=== PATIENT | female | born 1970 | race Caucasian/White ===

== ENCOUNTER 2024-02-02 15:58 | Emergency (ER) | payer MEDICAID, SELFPAY ==
[2024-02-02 16:07] VITALS: BP 156/93; PULSE 88; RESP 19; TEMP 36.9; O2SAT 98; BMI 29.0
--- NOTE | 2024-02-02 16:21 | XR_ITS ---
Examination: PA lateral chest 2 views TECHNIQUE: Upright PA lateral chest 2 views Exam date and time: February 02, 2024 1639 hours Comparison July 04, 2022 INDICATIONS: Onset chest pain today. FINDINGS: Early heart failure Mild enlargement cardiac contour Prominent vascular congestion Early septal edema at the lung bases and fluid in the fissures on the lateral view Small right pleural effusion IMPRESSION: Early heart failure
--- NOTE | 2024-02-02 16:21 | PD.EDRME ---
Rapid Medical Screening Exam RME Arrival date/time: 02/02/24 15:58 54-year-old female with history of methamphetamine abuse last use today presents to the emergency department today stating she has fluid retention and elevated blood sugar Chief Complaint: General Adult/Misc Complain Time Seen by Provider: 02/02/24 16:18
[2024-02-02 17:18] LABS: Collection Type, Urine Clean Catch
[2024-02-02 17:21] LABS: Base Excess, Venous 6 (-3-3); O2 Saturation, Venous 44 % (96-97); PCO2, Venous 55 mmHg (36-56); PO2, Venous 24 mmHg (15-58); pH, Venous 7.39 (7.33-7.66)
[2024-02-02 17:22] LABS: Basophils % (Auto) 1 % (0-2.5); Eosinophils # (Auto) 0.1 Thou/mm3 (0.0-0.5); Eosinophils % (Auto) 2 % (0-10); Hematocrit 43.9 % (36.0-46.0); Hemoglobin 15.2 g/dL (12.0-16.0); Immature Granulocytes % (Auto) 0 % (0-0); Immature Granulocytes Auto 0.01 Thou/mm3 (0.00-0.00); Lymphocytes # (Auto) 1.1 Thou/mm3 (1.0-4.8); Lymphocytes % (Auto) 25 % (10-50); Mean Corpuscular HGB Conc 34.6 g/dl (31.0-37.0); Mean Corpuscular Hemoglobin 29.6 pg (25.0-35.0); Mean Corpuscular Volume 85 fL (80-100); Monocytes # (Auto) 0.4 Thou/mm3 (0.0-0.8); Monocytes % (Auto) 8 % (0-12); Neutrophils # (Auto) 2.8 Thou/mm3 (1.8-7.7); Neutrophils % (Auto) 65 % (37-80); Nucleated Red Blood Cell % 0 /100 WBC (0); Platelet Count 180 Thou/mm3 (140-440); RDW Standard Deviation 41.6 fL (36.4-46.3); Red Blood Count 5.14 Miln/mm3 (4.00-5.20); White Blood Count 4.4 Thou/mm3 (3.6-11.0)
[2024-02-02 17:25] LABS: HCG Qualitative,Urine Negative
[2024-02-02 17:27] LABS: Bacteria,Urine Rare; Bilirubin,Urine Negative (Negative); Blood,Urine Negative (Negative); Clarity,Urine Clear (Clear/Hazy); Color,Urine Lt-Yellow (Lt Yel-Yel); Glucose, Urine 4+ (Negative); Ketones,Urine Negative (Negative); Leukocyte Esterase,Urine Negative (Negative); Nitrite,Urine Negative (Negative); PH,Urine 6.5 (5.0-7.0); Protein,Urine 1+ (Neg - Trace); RBC,Urine 3 /hpf (0-3); Specific Gravity,Urine 1.039 (1.001-1.035); Squamous Epithelial Cell,Urine 1 /hpf (0-5); Urobilinogen,Urine Negative mg/dL (0.0-1.0); WBC,Urine 5 /hpf (0-5)
[2024-02-02 17:38] LABS: Amphetamine/Methamp Scrn,U Positive (Negative); Barbiturate Screen,Urine Negative (Negative); Benzodiazepines Screen,Urine Negative (Negative); Benzoylecgonine Screen, Ur Negative (Negative); Fentanyl Screen,Urine Negative (Negative); Opiate Screen,Urine Negative (Negative); THC Screen,Urine Negative (Negative)
[2024-02-02 17:41] LABS: Glucose Estimated Average 309 mg/dL (80-131); Hemoglobin A1C 12.4 % Hgb (4.8-6.0)
[2024-02-02 17:42] LABS: Partial Thromboplastin Time 25.4 Seconds (22.0-36.0); Prothrombin Time 11.2 Seconds (9.0-12.2)
[2024-02-02 17:48] LABS: Alanine Aminotransferase 66 U/L (10-49); Albumin, Serum 3.7 gm/dL (3.5-5.0); Albumin/Globulin Ratio 1.1 (1.2-2.2); Alkaline Phosphatase 149 U/L (46-116); Anion Gap 3 (7-16); Aspartate Amino Transferase 36 U/L (0-34); BUN/Creatinine Ratio 11 Ratio (12-20); Bilirubin,Total 0.6 mg/dL (0.3-1.2); Blood Urea Nitrogen 10 mg/dL (9-23); Calcium 8.9 mg/dL (8.3-10.6); Calcium (Corrected) 9.1 mg/dL (8.5-10.1); Carbon Dioxide 30.7 mMol/L (20.0-31.0); Chloride 97 mMol/L (98-107); Creatinine (Component) 0.9 mg/dL (0.6-1.3); Estimated Creatinine Clearance 78.8 mL/min (>60); Globulin 3.3 gm/dL (2.3-3.5); LDH (Lactate Dehydrogenase) 223 U/L (120-246); Magnesium 1.6 mg/dL (1.6-2.6); Osmolality,Calculated 283 (275-295); Potassium 4.2 mMol/L (3.4-5.1); Sodium 131 mMol/L (136-145); Troponin I < 0.020 ng/mL (0.0-0.045); eGFR > 60 See Note
[2024-02-02 17:51] LABS: Glucose 488 mg/dL (74-106)
[2024-02-02 18:40] LABS: B-Type Natriuretic Peptide 135 pg/mL (0-100)
[2024-02-02] MEDS: SODIUM CHLORIDE 0.9% 1000 ML 1,000 ML 999 ML IV (20:38)
[2024-02-02] MEDS: INSULIN HUM REGULAR 1 UNIT/0.01 ML (PER UNIT) 6 UNIT SC (21:11)
[2024-02-02 22:24] VITALS: BP 164/88; PULSE 75; RESP 17; TEMP 36.7; O2SAT 97
--- NOTE | 2024-03-05 07:26 | EDNOTE_ITS ---
ED General RME/HPI General Chief complaint: General Adult/Misc Complain Stated complaint: HIGH GLUCOSE Time Seen by Provider: 02/02/24 16:18 Source: patient Arrival date/time: 02/02/24 15:58 This is a 54-year-old female with established known hypertensive, diabetic and methamphetamine use presents to the emergency department with complaints of hyperglycemia and mild lower leg edema. Patient reports she has not been compliant with medication has not follow-up with her PCP as directed noticed that her sugar was elevated today prompting her ER visit. Patient denies any chest pain, fever no shortness of breath. Does admit to chronic methamphetamine use daily. Mode of arrival: ambulatory RME / HPI RME / HPI narrative: 02/02/24 15:58 54-year-old female with history of methamphetamine abuse last use today presents to the emergency department today stating she has fluid retention and elevated blood sugar Related Data Home Medications ?Medication ?Instructions ?Recorded ?Confirmed albuterol sulfate 90 mcg/actuation 2 puff inhalation Q4HR PRN 06/02/22 02/15/24 aerosol inhaler Bronchospasm fluticasone propionate 110 1 puff inhalation BID 06/02/22 02/15/24 mcg/actuation HFA aerosol inhaler (Flovent HFA) dulaglutide 0.75 mg/0.5 mL 0.75 mg subcut QWEEK 02/15/24 02/15/24 subcutaneous pen injector (Trulicity) Previous Rx's ?Medication ?Instructions ?Recorded blood-glucose sensor (FreeStyle #1 ea 02/18/24 Ella 3 Sensor device) bumetanide 1 mg tablet 1 mg PO QDAY 1 month #30 tabs 02/18/24 carvedilol 6.25 mg tablet 6.25 mg PO BID 1 month #60 tabs 02/18/24 insulin degludec 100 unit/mL (3 20 unit (0.2 mL) subcut QPM 1 02/18/24 mL) subcutaneous pen month #6 mL lisinopril 20 mg tablet 20 mg PO QDAY 1 month #30 tabs 02/18/24 pen needle, diabetic 29 gauge x #100 ea 02/18/24 1/2 (Pen Needle) Allergies Allergy/AdvReac Type Severity Reaction Status Date / Time No Known Allergies Allergy Verified 02/15/24 13:03 Review of Systems Review of Systems Systems Reviewed: All systems reviewed, normal except as documented Narrative Review of Systems: Gen: No fever, no chills, no weight loss EYES: No discharge, no visual changes, no pain HEENT: No ear pain, no congestion, no sore throat PULM: No shortness of breath, no cough, no congestion CV: No chest pain, no dyspnea on exertion, no palpitations GI: No nausea, no vomiting, no diarrhea, no pain, no constipation : No frequency, no urgency,? no dysuria Musc/skel: No joint pain, no back pain Skin: No rash? Psyc: No hallucinations, no depression Heme/Lymph: No easy bleeding or bruising tendencies Neuro: No weakness, no headache ED Exam Narrative Physical exam: General: Sittiing in Exam table in no acute distress, answering questions appropriately HENT: normocephalic, atraumatic, EOMI, PERRLA, moist mucous membranes Chest: chest wall is nontender Cardiac: regular rate and rhythm, normal S1 and S2, no murmurs, rubs, or gallops, capillary refill ?2 seconds Pulmonary: clear to auscultation bilaterally, no wheezing, crackles, or rhonchi Abdominal: active bowel sounds, soft, nontender, nondistended Neuro: A&OX3, CN II-XII intact, sensation grossly intact bilaterally in UE and LE. Skin: no rashes, no ecchymosis Ext: mild edema, no pitting. Course Quality Measures none Orders Category Date Time Status EKG (ED ONLY) *Do not use* NOW Care 02/02/24 16:21 Completed Insert IV NOW Care 02/02/24 20:12 Completed EKG (ED Only) Stat Exams 02/02/24 16:21 Ordered XR chest 2V Stat Exams 02/02/24 16:21 Completed A1C [Glycohemoglobin w (eAG)] Stat Lab 02/02/24 17:09 Completed B-Type Natriuretic Peptide Stat Lab 02/02/24 17:09 Completed CBC Stat Lab 02/02/24 17:09 Completed Comprehensive Metabolic Panel Stat Lab 02/02/24 17:09 Completed Drug Screen,Urine Stat Lab 02/02/24 16:50 Completed HCG Qualitative,Urine Stat Lab 02/02/24 16:50 Completed LDH (Lactate Dehydrogenase) Stat Lab 02/02/24 17:09 Completed Magnesium Stat Lab 12/11/24 17:09 Completed Partial Thromboplastin Time Stat Lab 02/02/24 17:09 Completed Prothrombin Time with INR Stat Lab 02/02/24 17:09 Completed Troponin I Stat Lab 02/02/24 17:09 Completed Urinalysis Stat Lab 02/02/24 16:50 Completed VBG [Venous Blood Gas] Stat Lab 02/02/24 17:09 Completed Insulin Regular Med 02/02/24 20:46 Discontinued 6 unit SC X1 ONE Sodium Chloride 0.9% 1000 ml [Ns] 1,000 ml Med 02/02/24 20:12 Discontinued IV 999 mls/hr Vital Signs Vital signs: Vital Signs Temperature 98.5 F 02/02/24 16:07 Pulse Rate 88 02/02/24 16:07 Respiratory Rate 19 02/02/24 16:07 Blood Pressure 156/93 H 02/02/24 16:07 Pulse Oximetry (%) 98 02/02/24 16:07 Oxygen Delivery Method Room Air 02/02/24 16:07 [facility] Patient data External records reviewed:: [facility] previous records Clinical information provided by:: patient Social determinants that could affect healthcare access:: substance use Patient has the following chronic illnesses:: Hypertension, diabetes noncompliant How is presenting disease/condition affected by chronic disease/condition?: e xacerbated by Evaluation data The following diagnostics were reviewed and interpreted by me:: lab results, radiology exam(s) and EKG tracing(s) Lab and/or radiology exams considered but not ordered:: no Interpretation Summary: see above Examination: PA lateral chest 2 views TECHNIQUE: Upright PA lateral chest 2 views Exam date and time: February 02, 2024 1639 hours Comparison July 04, 2022 INDICATIONS: Onset chest pain today. FINDINGS: Early heart failure Mild enlargement cardiac contour Prominent vascular congestion Early septal edema at the lung bases and fluid in the fissures on the lateral view Small right pleural effusion IMPRESSION: Early heart failure Medications Medications considered but not ordered:: no Medication administrations:: Medication Administration History Discontinued Medications Sodium Chloride (Ns) 1,000 mls @ 999 mls/hr IV .Q1H1M ONE Stop: 02/02/24 21:12 Last Infusion: 02/02/24 22:23 Dose: Infused Documented By: Admin: 02/02/24 20:38 Dose: 999 mls/hr Documented By: Insulin Human Regular (Insulin Hum Regular 1 Unit/0.01 Ml (Per Unit)) 6 unit SC X1 ONE Stop: 02/02/24 20:47 Last Admin: 02/02/24 21:11 Dose: 1 unit Documented By: MP Co-signed By: All medications administered and effective Consultations Consultation(s) initiated? (list below): No Diagnosis Differential Diagnosis ED Complaint MDM: Cellulitis, hyperglycemia, DKA, methamphetamine use, Most likely diagnosis given after review of the tests above:: Hyperglycemia noncompliance Admission Indicated Admission indicated?: not indicated Explain why admission is indicated or not indicated:: Can be treated outpatient advised to start all her medications. And stop using methamphetamine Admission Request Was there a request for admission?: No Disposition Plan Disposition Plan: Discharge Discharge Attestation Discharge Attestation: The patient and all family members were given an opportunity to ask questions and understood the discharge instructions. Discharge instructions specifically effects, indications for sooner follow up or return to the emergency department, and the expected course of current diagnosis. Patient condition: Stable Medical Decision Making MDM Narrative MDM Narrative: 54-year-old female who presents to the emergency department with complaints of hyperglycemia. Patient reports she does not follow-up with her PCP or taking medications as directed. She noted today that her sugar was high prompting her visit. She also stated she has noticed mild lower leg tightness however has no chest pain no dyspnea. Patient's labs reviewed CBC reassuring. CMP mild elevated liver enzymes, BNP 131, normal T. bili, negative troponin. Chest x-ray demonstrated mild right heart heart failure. Patient states she was started on new medication including insulin, metformin and Lasix. She has a follow-up with her doctor this week. Will give her some medication to bring down her sugar. ER precautions given. Differential Diagnosis Differential Diagnosis: Cellulitis, hyperglycemia, DKA, methamphetamine use, Lab Data 02/02/24 17:09 02/02/24 17:09 Labs: Lab Results 02/02/24 02/02/24 Range/Units 16:50 17:09 WBC 4.4 (3.6-11.0) Thou/mm3 RBC 5.14 (4.00-5.20) Miln/mm3 Hgb 15.2 (12.0-16.0) g/dL Hct 43.9 (36.0-46.0) % MCV 85 (80-100) fL MCH 29.6 (25.0-35.0) pg MCHC 34.6 (31.0-37.0) g/dl RDW Std Deviation 41.6 (36.4-46.3) fL Plt Count 180 (140-440) Thou/mm3 Neut % (Auto) 65 (37-80) % Lymph % (Auto) 25 (10-50) % Christian % (Auto) 8 (0-12) % Eos % (Auto) 2 (0-10) % Baso % (Auto) 1 (0-2.5) % Neut # (Auto) 2.8 (1.8-7.7) Thou/mm3 Lymph # (Auto) 1.1 (1.0-4.8) Thou/mm3 Christian # (Auto) 0.4 (0.0-0.8) Thou/mm3 Eos # (Auto) 0.1 (0.0-0.5) Thou/mm3 Baso # (Auto) 0.0 (0.0-0.2) Thou/mm3 Immature Gran # (Auto) 0.01 H (0.00-0.00) Thou/mm3 Absolute Nucleated RBC 0.00 (0.00-0.00) Thou/mm3 Immature Gran % 0 (0-0) % Nucleated RBC % 0 (0) /100 WBC PT 11.2 (9.0-12.2) Seconds INR 1.0 (0.9-1.3) APTT 25.4 (22.0-36.0) Seconds VBG pH 7.39 (7.33-7.66) VBG pCO2 55 (36-56) mmHg VBG pO2 24 (15-58) mmHg VBG O2 Sat (Tri) 44 L (96-97) % VBG Base Excess 6 H (-3-3) Sodium 131 L (136-145) mMol/L Potassium 4.2 (3.4-5.1) mMol/L Chloride 97 L (98-107) mMol/L Carbon Dioxide 30.7 (20.0-31.0) mMol/L Anion Gap 3 L (7-16) BUN 10 (9-23) mg/dL Creatinine 0.9 (0.6-1.3) mg/dL Estim Creat Clear Calc 78.8 (>60) mL/min eGFR > 60 (60 - ) See Note BUN/Creatinine Ratio 11 L (12-20) Ratio Glucose 488 H* (74-106) mg/dL Estimated Ave Glu mg/dL 309 H (80-131) mg/dL Hemoglobin A1c 12.4 H (4.8-6.0) % Hgb Calculated Osmolality 283 (275-295) Calcium 8.9 (8.3-10.6) mg/dL Corrected Calcium 9.1 (8.5-10.1) mg/dL Magnesium 1.6 (1.6-2.6) mg/dL Total Bilirubin 0.6 (0.3-1.2) mg/dL AST 36 H (0-34) U/L ALT 66 H (10-49) U/L Alkaline Phosphatase 149 H (46-116) U/L Lactate Dehydrogenase 223 (120-246) U/L Troponin I < 0.020 (0.0-0.045) ng/mL B-Natriuretic Peptide 135 H (0-100) pg/mL Total Protein 7.0 (5.7-8.2) gm/dL Albumin 3.7 (3.5-5.0) gm/dL Globulin 3.3 (2.3-3.5) gm/dL Albumin/Globulin Ratio 1.1 L (1.2-2.2) Ur Collection Type Clean Catch Urine Color Lt-Yellow (Lt Yel-Yel) Urine Clarity Clear (Clear/Hazy) Urine pH 6.5 (5.0-7.0) Ur Specific Volcano 1.039 H (1.001-1.035) Urine Protein 1+ A (Neg - Trace) Urine Glucose (UA) 4+ A (Negative) Urine Ketones Negative (Negative) Urine Blood Negative (Negative) Urine Nitrite Negative (Negative) Urine Bilirubin Negative (Negative) Urine Urobilinogen (Auto) Negative (0.0-1.0) mg/dL Ur Leukocyte Esterase Negative (Negative) Urine RBC 3 (0-3) /hpf Urine WBC 5 (0-5) /hpf Ur Squamous Epith Cells 1 (0-5) /hpf Urine Bacteria Rare (None) Urine HCG, Qual Negative Urine Opiates Screen Negative (Negative) Urine Fentanyl Screen Negative (Negative) Ur Barbiturates Screen Negative (Negative) U Amphetamin/Meth Scrn Positive A (Negative) U Benzodiazepines Scrn Negative (Negative) U Cocaine Metab Screen Negative (Negative) U Marijuana (THC) Screen Negative (Negative) Discharge Plan Plan Patient Disposition: HOME (Self Care) Patient condition on transfer: Stable Prescriptions/Referrals Prescriptions/Med Rec: No Action albuterol sulfate 90 mcg/actuation HFA aerosol inhaler 2 puff INHALATION Q4HR PRN (Reason: Bronchospasm) Patient Comments: INHALE 2 PUFFS BY MOUTH EVERY 4 HOURS NEEDED fluticasone propionate [Flovent HFA] 110 mcg/actuation HFA aerosol inhaler 1 puff INHALATION BID Patient Comments: INHALE 1 PUFF BY MOUTH TWICE DAILY Trulicity 0.75 mg/0.5 mL pen injector 0.75 mg SUBCUT QWEEK bumetanide 1 mg tablet 1 mg PO QDAY 30 Days Qty: 30 0RF carvedilol 6.25 mg tablet 6.25 mg PO BID 30 Days Qty: 60 0RF Rx Instructions: must administer with a meal/food insulin degludec 100 unit/mL (3 mL) insulin pen 20 unit subcut QPM 30 Days Qty: 6 0RF lisinopril 20 mg tablet 20 mg PO QDAY 30 Days Qty: 30 0RF (DME) pen needle, diabetic [Pen Needle] 29 gauge x 1/2 needle See Rx Instructions .Route Qty: 100 0RF Rx Instructions: As directed (DME) FreeStyle Ella 3 Sensor Device See Rx Instructions .Route Qty: 1 0RF Rx Instructions: As directed Referrals: Yeyo Fabian MD [Primary Care Provider] - In 1 week Problem List Clinical Impression: Uncontrolled diabetes mellitus, Acute hyperglycemia, Methamphetamine abuse Patient/Caregiver Discharge Instructions Discharge Activity: activity as tolerated Education Materials: High Blood Sugar (Hyperglycemia), ED Drug Abuse Additional Instructions: It is very important that you start taking your insulin and medication. And also stop using drugs puts you at higher risk for worsening chronic conditions. Make a follow-up appointment with your primary doctor Return to the emergency department there is any worsening symptoms or change in condition. Print Language: Anguillan Stand Alone Forms: [employer] Award Info., Patient Portal Info Letter PA/ADMINISTRATIVE PROCESSOR Supervising Physician PA/ARLEEN Supervising Physician: Dr. Suazo
== END 2024-02-02 22:26 | disposition home or self-care (01) ==
PROVIDERS: Nurse Practitioner Primary Care; Emergency Provider Emergency Medicine; PCP Family Medicine
DX: E11.65 Type 2 diabetes mellitus with hyperglycemia (principal); F15.10 Other stimulant abuse, uncomplicated; I11.0 Hypertensive heart disease with heart failure; I50.9 Heart failure, unspecified; Z79.85 Long-term (current) use of injectable non-insulin antidiabetic drugs
CPT/HCPCS: 36415; 71046; 80053; 80307; 81001; 81025; 82803; 83036; 83615; 83735; 83880; 84484; 85025; 85610; 85730; 96360; 96361; 96372; 99284; J1815; J7030

== ENCOUNTER 2024-02-15 13:02 | Inpatient (IN) | payer MEDICAID, SELFPAY ==
[2024-02-15] VITALS (19 sets, daily range): BP systolic 136–164; BP diastolic 81–108; PULSE 93–103; RESP 3–24; TEMP 36.6–36.9; O2SAT 88–96; BMI 37.5
--- NOTE | 2024-02-15 13:06 | EKG_ITS ---
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
--- NOTE | 2024-02-15 13:06 | XR_ITS ---
Examination: PA lateral chest 2 views Technique: Upright PA lateral chest 2 views Indications: February 15, 2024 1310 hrs. Comparison February 02, 2024 Indications: Chest pain one week. Findings: Mild heart failure Mild enlargement cardiac contour Prominent vascular congestion, fluid in the major fissures on lateral view Opacity in the right middle lobe consider superimposed pneumonia Moderate osteopenia Impression: Mild heart failure Suspicious for pneumonia in the right middle lobe
--- NOTE | 2024-02-15 13:14 | PD.EDRME ---
Rapid Medical Screening Exam RME Arrival date/time: 02/15/24 13:02 54-year-old female history of CHF presents to the emergency department with complaints of CHF exacerbation Chief Complaint: Shortness of Breath/Dyspnea
[2024-02-15 13:41] LABS: Basophils % (Auto) 1 % (0-2.5); Eosinophils # (Auto) 0.1 Thou/mm3 (0.0-0.5); Eosinophils % (Auto) 1 % (0-10); Hematocrit 45.3 % (36.0-46.0); Hemoglobin 14.7 g/dL (12.0-16.0); Immature Granulocytes % (Auto) 0 % (0-0); Lymphocytes # (Auto) 1.2 Thou/mm3 (1.0-4.8); Lymphocytes % (Auto) 29 % (10-50); Mean Corpuscular HGB Conc 32.5 g/dl (31.0-37.0); Mean Corpuscular Hemoglobin 29.1 pg (25.0-35.0); Mean Corpuscular Volume 90 fL (80-100); Monocytes # (Auto) 0.4 Thou/mm3 (0.0-0.8); Monocytes % (Auto) 9 % (0-12); Neutrophils # (Auto) 2.5 Thou/mm3 (1.8-7.7); Neutrophils % (Auto) 60 % (37-80); Nucleated Red Blood Cell % 0 /100 WBC (0); Platelet Count 176 Thou/mm3 (140-440); RDW Standard Deviation 42.7 fL (36.4-46.3); Red Blood Count 5.06 Miln/mm3 (4.00-5.20); White Blood Count 4.1 Thou/mm3 (3.6-11.0)
[2024-02-15 14:02] LABS: Partial Thromboplastin Time 25.1 Seconds (22.0-36.0); Prothrombin Time 11.3 Seconds (9.0-12.2)
[2024-02-15 14:05] LABS: B-Type Natriuretic Peptide 161 pg/mL (0-100)
[2024-02-15 14:09] LABS: Alanine Aminotransferase 68 U/L (10-49); Albumin, Serum 3.4 gm/dL (3.5-5.0); Alkaline Phosphatase 131 U/L (46-116); Anion Gap 3 (7-16); Aspartate Amino Transferase 59 U/L (0-34); BUN/Creatinine Ratio 18 Ratio (12-20); Bilirubin,Total 0.6 mg/dL (0.3-1.2); Blood Urea Nitrogen 11 mg/dL (9-23); Calcium 8.7 mg/dL (8.3-10.6); Calcium (Corrected) 9.2 mg/dL (8.5-10.1); Carbon Dioxide 31.1 mMol/L (20.0-31.0); Chloride 104 mMol/L (98-107); Creatinine (Component) 0.6 mg/dL (0.6-1.3); Estimated Creatinine Clearance 139.4 mL/min (>60); Globulin 3.5 gm/dL (2.3-3.5); Glucose 195 mg/dL (74-106); Magnesium 1.6 mg/dL (1.6-2.6); Osmolality,Calculated 280 (275-295); Potassium 4.7 mMol/L (3.4-5.1); Sodium 138 mMol/L (136-145); Total Protein 6.9 gm/dL (5.7-8.2); Troponin I < 0.020 ng/mL (0.0-0.045); eGFR > 60 See Note
[2024-02-15 14:21] LABS: LDH (Lactate Dehydrogenase) 253 U/L (120-246)
--- NOTE | 2024-02-15 16:15 | XR_ITS ---
Examination: Venous duplex lower extremity sonogram, bilateral. Date and time of exam: February 15, 2024 1727 hrs. Indications: Bilateral leg swelling beginning one week ago Technique: Multiple sonographic images of the deep venous system have been obtained. B-mode/2-D grayscale imaging of vascular structures and Doppler spectral analysis (waveforms) and color performed Both legs are examined. Findings: Deep venous systems do not demonstrate abnormal echogenicity. All visualized deep veins exhibit compressibility. All visualized deep veins exhibit augmentation. Impression: Negative for deep vein thrombosis
--- NOTE | 2024-02-15 16:27 | PC.NURSE ---
PATIENT BROUGHT BACK TO ROOM FOR FURTHER EVALUATION SECONDARY TO SOB. PATIENT PLACED ON MONITOR AND OXYGEN DUE TO LOW SATS OF 89% ON RA. PATIENT ASSESSMENT COMPLETED BY RN. PATIENT WITH COMPLAINT OF SOB TIMES 2 WEEKS AND INCREASING TODAY. PATIENT HAS SWELLING TO LOWER EXTREMITIES AND STATES SHE WAS RECENTLY PUT ON LASIX. PATIENT IS TEARFUL AND STATES SHE IS SCARED OF DYING PATIENT ADMITS TO DOING METH 2 DAYS AGO. PATIENT GIVEN CALL LIGHT AND IS AWARE OF PLAN OF CARE.
--- NOTE | 2024-02-15 16:35 | PD.EDSOB ---
ED SOB =RME/HPI General Chief Complaint: Shortness of Breath/Dyspnea Stated Complaint: I can't breathe,I'm swollen, I have heart failure Arrival date/time: 02/15/24 13:02 RME / HPI RME / HPI Narrative: 02/15/24 13:02 54-year-old female history of CHF presents to the emergency department with complaints of CHF exacerbation DR. HAND MAIN ED EVALUATION: 54 year old female presents to the Emergency Department with complaint of shortness of breath. Patient states, I can't breathe and I'm swollen . Symptoms are moderate. PMHx: CHF and insulin-dependent diabetic. Social Hx: Smokes cigarettes and methamphetamine abuse (last used 2 days ago). Related Data Home Medications ?Medication ?Instructions ?Recorded ?Confirmed albuterol sulfate 90 mcg/actuation 2 puff inhalation Q4HR PRN 06/02/22 06/03/22 aerosol inhaler Bronchospasm fluticasone propionate 110 1 puff inhalation BID 06/02/22 06/03/22 mcg/actuation HFA aerosol inhaler (Flovent HFA) insulin glargine-yfgn 100 unit/mL 25 unit subcut BID 06/03/22 06/03/22 (3 mL) subcutaneous pen Previous Rx's ?Medication ?Instructions ?Recorded prednisone 20 mg tablet See Taper PO QDAY #15 tabs 07/04/22 ibuprofen 800 mg tablet 800 mg PO TID PRN pain #30 tabs 07/31/22 sulfamethoxazole 800 1 tab PO BID #20 tabs 07/31/22 mg-trimethoprim 160 mg tablet (Bactrim DS) Allergies Allergy/AdvReac Type Severity Reaction Status Date / Time No Known Allergies Allergy Verified 02/15/24 13:03 Review of Systems Review of Systems Systems Reviewed: All systems reviewed, normal except as documented Narrative Review of Systems: GEN: No fever, no chills, no weight loss EYES: No discharge, no visual changes, no pain HEENT: No ear pain, no congestion, no sore throat PULM: + shortness of breath (see HPI), no cough, no congestion CV: No chest pain, no dyspnea on exertion, no palpitations GI: No nausea, no vomiting, no diarrhea, no pain, no constipation : No frequency, no urgency and no dysuria MUSC/SKEL: No joint pain, no back pain SKIN: No rash PSYCH: No hallucinations, no depression HEME/LYMPH: No easy bleeding or bruising tendencies NEURO: No weakness, no headache Past Medical History Past Medical History NEUROLOGIC: Positive Neurological Disorders and Peripheral Neuropathy; Negative Cerebrovascular Accident or Seizures CARDIAC: Positive Hypertension; Negative Cardiac Disorders, Myocardial Infarction, Hypercholesterolemia or Congestive Heart Failure RESPIRATORY: Negative Chronic Obstructive Pulmonary Disease (COPD) or Asthma GASTROINTESTINAL: Positive Gastrointestinal Disorders, Gall Bladder Disease and Hemorrhoids; Negative Gastrointestinal Bleed or Hiatal Hernia GENITOURINARY: Negative Genitourinary Disorders or Renal Disease MUSCULOSKELETAL: Positive Musculoskeletal Disorders; Negative Osteoporosis or Fractures ENDOCRINE: Positive Endocrine Disorders and Diabetes Mellitus Type 2; Negative Diabetes Mellitus Type 1 or Hypothyroidism HEMATOLOGIC: Negative Blood Disorders or Sickle Cell Disease PSYCHO/SOCIAL: Positive Recreational Drug Use, Bipolar Disorder, Depression and Anxiety OTHER HISTORY: Positive Anesthesia Reactions; Negative Shingles, Falls, Blood Transfusions, Blood Transfusion Reaction, MRSA or Clostridium Difficile Family History FAMILY HISTORY: Negative Family Cardiac Disorders or Family Anesthesia Reaction Social History SMOKING STATUS: Current every day smoker SUBSTANCE USE: methamphetamine SUBSTANCE LAST USED: days (ago) (2) ALCOHOL: Never ED Exam Narrative Physical exam: GENERAL APPEARANCE: alert and oriented x 4, well-developed, well-nourished, no acute distress VITALS: All vitals were reviewed and the pulse ox is 94% on 2 L/min via a nasal cannula. HEENT: Normocephalic, atraumatic; pupils equal, round, reactive to light; EOMI; mucous membranes pink, moist; oropharynx clear NECK: Supple LUNGS: CTABL; no wheezes, no rales, no rhonchi HEART: Regular rate, regular rhythm; normal S1, S2; no murmurs ABDOMEN: non distended; normal BS; soft, no tenderness, no guarding, no rebound; no masses, no organomegaly, no hernia BACK: no CVA tenderness EXTREMITIES: atraumatic; no edema NEUROLOGIC: awake; alert and oriented x4; cranial nerves II-XII grossly intact; no focal sensory or motor deficits PSYCHIATRIC: appropriate mood and affect SKIN: warm, dry, normal color; no rashes Course Course Course Narrative: 1800: Patient was signed out to Dr. Cade. Past medical, surgical, social and family history reviewed. Vitals and home medications reviewed. Results and treatment plan discussed. They will assume the care of the patient at this time and will follow the patient, pending US, chest CTA, EKG, and final disposition. Quality Measures none Orders Category Date Time Status CT Screening NOW Care 02/15/24 17:03 Active EKG (ED ONLY) *Do not use* NOW Care 02/15/24 13:[address] angio chest Stat Exams 02/15/24 17:03 Ordered EKG (ED Only) Stat Exams 02/15/24 13:06 Draft US venous doppler LE BI Stat Exams 02/15/24 16:15 Ordered XR chest 2V Stat Exams 02/15/24 13:06 Completed B-Type Natriuretic Peptide Stat Lab 02/15/24 13:31 Completed CBC Stat Lab 02/15/24 13:31 Completed Comprehensive Metabolic Panel Stat Lab 02/15/24 13:31 Completed D-Dimer Stat Lab 02/15/24 13:13 Completed Drug Screen,Urine Stat Lab 02/15/24 16:08 Completed LDH (Lactate Dehydrogenase) Stat Lab 02/15/24 13:31 Completed Magnesium Stat Lab 02/15/24 13:31 Completed Partial Thromboplastin Time Stat Lab 02/15/24 13:31 Completed Prothrombin Time with INR Stat Lab 02/15/24 13:31 Completed Troponin I Stat Lab 02/15/24 13:31 Completed Vital Signs Vital signs: Vital Signs Temperature 98 F 02/15/24 13:18 Pulse Rate 96 02/15/24 13:18 Respiratory Rate 18 02/15/24 13:18 Blood Pressure 139/84 H 02/15/24 13:18 Pulse Oximetry (%) 95 02/15/24 13:18 Oxygen Delivery Method Room Air 02/15/24 13:18 Procedures -ED Smoking Cessation Time Spent Discussing Smoking Cessation w/Patient (min): 3 Patient Acknowledges Need for Cessation: Yes Additional Comments: The patient was counseled as to the multiple risks to their health from continued use of tobacco products. It was explained that continuing to smoke may lead to multiple short and marine oil terminal superintendent negative health consequences, including but not limited to mouth/esophageal/lung cancer, COPD, and heart disease. The patient states they understand these risks, and also understand the options and resources available to them to help them stop smoking. Nicotine replacement therapy, local hotlines, and local resources were discussed as viable options for helping them stop their tobacco use. The total time spent counseling the patient regarding tobacco cessation was 3 minutes. Shortness of Breath / Dyspnea MDM Narrative MDM Narrative:: I, Mindy Herr, am scribing for and in the presence of Dr. Hand. Patient data External records reviewed:: [facility] previous records (Reviewed last ED visit dated 02/02/24, discharged with the following: Acute hyperglycemia.) Clinical information provided by:: patient Social determinants that could affect healthcare access:: other (specify) (Smokes cigarettes and methamphetamine abuse (last used 2 days ago). ) Patient has the following chronic illnesses:: CHF and insulin-dependent diabetic. How is presenting disease/condition affected by chronic disease/condition?: exacerbated by Evaluation data The following diagnostics were reviewed and interpreted by me:: lab results, radiology exam(s) and EKG tracing(s) Lab and/or radiology exams considered but not ordered:: none Interpretation Summary: Procedure(s): XR chest 2V Accession Number(s): [id number] cc: Elaine (JOSETTE),Victorino FINCH; Yeyo Fabian MD; Taz Lay MD~ Examination: PA lateral chest 2 views Technique: Upright PA lateral chest 2 views Indications: February 15, 2024 1310 hrs. Comparison February 02, 2024 Indications: Chest pain one week. Findings: Mild heart failure Mild enlargement cardiac contour Prominent vascular congestion, fluid in the major fissures on lateral view Opacity in the right middle lobe consider superimposed pneumonia Moderate osteopenia Impression: Mild heart failure Suspicious for pneumonia in the right middle lobe Dictated By: Taz Lay MD Medications / Prescriptions Medications or Prescriptions considered but not ordered:: none Medication administrations:: see above if any Consultations Consultation(s) initiated? (list below): No Diagnosis Shortness of Breath Differential Diagnosis: acute exacerbation of chronic obstructive airways disease, congestive heart failure, community acquired pneumonia and pulmonary embolism Most likely diagnosis given after review of the tests above:: No official diagnoses at this time, still pending diagnostic tests. Patient signout to the production shift supervisor provider. Admission Indicated Admission indicated?: not indicated Explain why admission is indicated or not indicated:: No final disposition plan at this time, still pending diagnostic tests. Patient signout to the production shift supervisor provider. Admission Request Was there a request for admission?: No Disposition Plan Disposition Plan: other (specify) (Patient signout to the production shift supervisor provider. ) Discharge Plan Prescriptions/Referrals Prescriptions/Med Rec: No Action prednisone 20 mg tablet See Taper PO QDAY Qty: 15 0RF Taper: Prednisone Taper 60 mg DAILY for 5 Days and 0 Hour sulfamethoxazole-trimethoprim [Bactrim DS] 800-160 mg tablet 1 tab PO BID Qty: 20 0RF ibuprofen 800 mg tablet 800 mg PO TID PRN (Reason: pain) Qty: 30 0RF albuterol sulfate 90 mcg/actuation HFA aerosol inhaler 2 puff INHALATION Q4HR PRN (Reason: Bronchospasm) Patient Comments: INHALE 2 PUFFS BY MOUTH EVERY 4 HOURS NEEDED fluticasone propionate [Flovent HFA] 110 mcg/actuation HFA aerosol inhaler 1 puff INHALATION BID Patient Comments: INHALE 1 PUFF BY MOUTH TWICE DAILY insulin glargine-yfgn 100 unit/mL (3 mL) insulin pen 25 unit SUBCUT BID Patient Comments: INJECT 25 UNITS SUBCUTANEOUSLY TWICE DAILY Referrals: Yeyo Fabian MD [Primary Care Provider] - In 1 week Patient/Caregiver Discharge Instructions Print Language: Divehi
[2024-02-15 16:57] LABS: D-Dimer 644 ng/mL (<600)
[2024-02-15 16:59] LABS: Amphetamine/Methamp Scrn,U Positive (Negative); Barbiturate Screen,Urine Negative (Negative); Benzodiazepines Screen,Urine Negative (Negative); Benzoylecgonine Screen, Ur Negative (Negative); Fentanyl Screen,Urine Negative (Negative); Opiate Screen,Urine Negative (Negative); THC Screen,Urine Negative (Negative)
--- NOTE | 2024-02-15 17:03 | XR_ITS ---
Examination: CTA chest with intravenous contrast 2-D reconstructions 3-D reconstructions, vascular Date and time of exam: February 15, 2024 1814 hrs. Indications: Difficulty breathing chest pain shortness of breath today CTDI: vol (mGy) 21.3 DLP: (mGycm) 387 Technique: Multiple axial sections of the thorax have been obtained. 3 mm slice thickness, from below the hemidiaphragms to above the apices of the lungs. Mediastinal and lung density settings have been obtained. 2-D sagittal and coronal reconstructions. 3-D angiographic renderings, 3-D volume renderings, 3D post processing, vascular maximum intensity projections obtained. Contrast administered is 100 cc Isovue-370 intravenous. Low dose protocols were performed. One or more of the following dose reduction techniques were used; automated exposure control, adjustment of the mA and/or KV according to patient size, use of iterative reconstruction technique. Findings: No thoracic aortic aneurysm dilatation Pulmonary artery segments are not enlarged No pulmonary artery emboli Mild enlargement cardiac contour with vascular congestion and septal pulmonary edema throughout the lungs 10 mm bleb in the right midlung Small bilateral pleural effusions Anasarca Liver irregular in contour with prominent splenomegaly Absent gallbladder Kidneys partially visualized no hydronephrosis Impression: Negative for pulmonary artery emboli Mild to moderate CHF Cirrhosis Prominent splenomegaly
--- NOTE | 2024-02-15 18:03 | PD.EDADDENDU ---
Emergency Room Addendum <Mindy Herr - Last Filed: 02/15/24 18:06> Addendum Narrative: 1800: Care assumed from Dr. Hand, the previous shift emergency physician. Past medical, surgical, social and family history reviewed. Vitals and home medications reviewed. I will assume the care of the patient at this time, pending US, chest CTA, EKG, and final disposition. Please refer to the emergency department record for history and examination from initial visit.? Physical exam by me shows patient under no acute distress at this time. <Juwan Cade MD - Last Filed: 02/15/24 20:13> Addendum Narrative: This section includes all my notes and documentations, including HPI, PE, and ED course. Juwan Cade MD I took over the care from Dr. HAND at 6 PM on 02/15/2024, see her notes for complete H&P and ED course. I reviewed all diagnostic test results. My interpretation of the EKG is sinus rhythm with no acute ST?T changes. My interpretation of the chest x-ray is increased vascular congestion. My review of the chest CT report is CHF. My review of the leg ultrasound report is no DVT. Blood tests and urine tests remarkable for D-dimer 644, negative troponin, BNP 161, and UDS positive for methamphetamine. I ordered UA, the result is pending. At this point, diagnoses include acute respiratory failure with hypoxia, CHF, asthma, methamphetamine abuse, and leg edema. Treatment here included Solu-Medrol and DuoNeb and Lasix and morphine and topical NTG. No significant improvement noted. I discussed the case with our hospitalist. About the presentation and exam and diagnostics and treatments here. And need of further care in the hospital. Will accept the patient. Juwan Cade MD
[2024-02-15] MEDS: MethylPREDNISolone SOD SUCC 62.5 MG/ML 2ML VIAL 125 MG IVP (18:48)
[2024-02-15] MEDS: NITROGLYCERIN OINT 2% 1 INCH PACKET TOP (19:19)
[2024-02-15] MEDS: FUROSEMIDE INJ 10 MG/ML 4ML VIAL 40 MG IVP (19:22)
[2024-02-15] MEDS: MORPHINE SULF INJ 10 MG/ML VIAL 4 MG IVP (19:22)
[2024-02-15] MEDS: ALBUTEROL/IPRATROPIUM (Duoneb) RT SOL 3 ML NEBU INH (20:02)
[2024-02-15 20:08] LABS: Alcohol, Blood Medical < 3.0 mg/dL (0-10.0)
--- NOTE | 2024-02-15 20:39 | ECHO_ITS ---
Transthoracic Echo Report Ht (in): 67 Wt (lb): 240 Exam Location: Portable Status: Emergency Income Tax Investigator: Sho Chinchilla Indications: Procedure Performed: BP: 163 / 88 HR: 105 Rhythm: Sinus Technical Quality: Technically difficult study MEASUREMENTS (Male / Female) Normal Values 2D ECHO LV Diastolic Diameter PLAX 5.4 cm 4.2 - 5.9 / 3.9 - 5.3 cm LV Systolic Diameter PLAX 4.2 cm IVS Diastolic Thickness 1.0 cm 0.6 - 1.0 / 0.6 - 0.9 cm LVPW Diastolic Thickness 1.0 cm 0.6 - 1.0 / 0.6 - 0.9 cm LV Relative Wall Thickness 0.4 LVOT Diameter 2.1 cm LA Volume Index 23.1 cm?/m? 16 - 28 cm?/m? Ascending Aorta Diameter 3.0 cm M-MODE Aortic Root Diameter MM 2.7 cm LA Systolic Diameter MM 2.9 cm LA Ao Ratio MM 1.1 MV E Point Septal Separation 0.9 cm AV Cusp Separation MM 2.3 cm DOPPLER AV Peak Velocity 123.0 cm/s AV Peak Gradient 6.1 mmHg AV Mean Gradient 4.0 mmHg AV Velocity Time Integral 25.6 cm LVOT Peak Velocity 106.0 cm/s LVOT Peak Gradient 4.5 mmHg LVOT Velocity Time Integral 21.0 cm LVOT Cardiac Index 3297.6 cm?/min?m? AV Area Cont Eq vti 2.8 cm? AV Area Cont Eq pk 3.0 cm? MV Peak Velocity 134.0 cm/s MV Peak Gradient 7.2 mmHg MV Mean Velocity 77.7 cm/s MV Mean Gradient 3.0 mmHg MV Area PHT 5.5 cm? Mitral E Point Velocity 84.9 cm/s Mitral A Point Velocity 56.3 cm/s Mitral E to A Ratio 1.5 LV E' Lateral Velocity 9.0 cm/s Mitral E to LV E' Lateral Ratio 9.4 LV E' Septal Velocity 4.9 cm/s Mitral E to LV E' Septal Ratio 17.3 TR Peak Velocity 258.3 cm/s TR Peak Gradient 26.7 mmHg FINDINGS Left Ventricle Dilated Left ventricle. wall thickness, Low systolic function LVEF 50-555 Right Ventricle The right ventricle is mildly dilated. Normal systolic function. The estimated right ventricular sys tolic pressure, 45 mmHg. RAP 10. Left Atrium The left atrium is normal by two-dimensional, color flow and Doppler imaging with no structural abnormalities, no thrombus formation present. Right Atrium The right atrium is normal by two-dimensional imaging, color flow and Doppler imaging with no struct ural abnormalities, no thrombus formation present. Atrial Septum The interatrial septum appears normal with no evidence of a shunt. Aorta The aorta is normal by two-dimensional, color flow and Doppler interrogation. Mitral Valve The mitral valve is normal by two-dimensional, color flow and Doppler interrogation. There is mild mitral valve regurgitation. Aortic Valve The aortic valve is trileaflet and normal by two-dimensional, color flow and Doppler interrogation. There is no significant aortic valve regurgitation. Tricuspid Valve The tricuspid valve is normal by two-dimensional, color flow and Doppler interrogation. There is mil d tricuspid valve regurgitation. Pulmonic Valve The pulmonic valve is not well visualized. There is no significant pulmonic valve regurgitation. Vessels The pulmonary artery appears normal. The inferior vena cava pulmonary and hepatic veins appear mildl y dilated Pericardium The pericardium is normal by two-dimensional imaging. There is no significant pericardial effusion. CONCLUSIONS Dilated LV. Low normal function LVEF 50-55% Dilated RV. Normal RV function. Estimated RVSP 45mmHg. Mild MR, TR. IVC dilated. Silvia Mcallister (Electronically Signed) Final Date: 17 February 2024 15:51
--- NOTE | 2024-02-15 20:49 | ESHP_ITS ---
<Statement entered by Albin Martin MD - 02/17/24 21:44> I Albin Martin MD reviewed the note and agree with the resident's assessment & plan with exceptions as below. I have personally reviewed labs, imaging, home meds/prior records, examined the patient, formulated and discussed management plan with the IM team. Documentation for date of: 02/15/24 HPI History of Present Illness Chief complaint: Shortness of breath History of present illness: 55-year-old female with past medical history of hypertension, insulin-dependent type 2 diabetes, obesity, clinically diagnosed CHF and active meth use disorder presenting to the ED on 02/14 for shortness of breath and worsening lower extremity swelling. Per patient, she has been having lower extremity swelling for the past several weeks and they have recently worsened; however, she decided to come to the ED upon new onset of shortness of breath. Patient states that she started to develop some tightness around her upper abdomen and felt like she could not breathe. Of note, patient recently went to PCP at [facility] and she was started on several medications for suspected congestive heart failure. Patient states that she is been taking her medications as prescribed but her symptoms have not improved. Patient denies having any sick contacts and denies having symptoms of fever/chills, dizziness, chest pain, palpitations, orthopnea, paroxysmal nocturnal dyspnea. Patient does state that for the past week she has been feeling sick with a runny nose and headache along with lower back pain; however, denies having any sick contacts or any recent travels. Patient does not follow a manager environmental outpatient and prior to seeing the PCP at [facility] had not been to a PCP for several years. Patient also actively uses methamphetamine almost daily, with the last use couple days ago. Medical history: As listed above Surgical history: Patient had intra-abdominal abscess which was drained sometime in 2022; as listed in EHR Allergies: NKDA Medications: Patient takes 25 units of Lantus twice daily and 20 units lispro 3 times daily, recently started on carvedilol, lisinopril and Bumex Family history: Noncontributory Social history: Patient is from [place], currently lives with a friend in an , several years ago and she has been spiraling , active tobacco and sporadic alcohol use, daily methamphetamine use. Patient has multiple children and states that she has 43 grandchildren, patient does not currently work. ROS: All 12 systems assessed and the patient denies unless otherwise stated in HPI. In the ED, patient presented hypoxemic requiring 4 L of nasal cannula, moderately hypertensive 139/84, heart rate 96, respiratory rate 18 and afebrile. Pertinent lab findings included creatinine 0.6, BUN 11, glucose 195, hemoglobin A1c 12.4, magnesium 1.6, AST 59, ALT 68, alk phos 131, LDH 253, troponin less than 0.020, BNP 161. Urine tox positive for amphetamine. Chest x-ray shows mild heart failure and suspicious for right middle lobe pneumonia, EKG shows normal sinus rhythm with no concerning ST changes, venous Doppler ultrasound is negative for any DVT and CTA of the chest shows negative for pulmonary emboli, mild to moderate CHF, cirrhosis and prominent splenomegaly. Patient will be admitted for treatment and diagnosis of likely congestive heart failure secondary to meth use disorder, dilated cardiomyopathy pending echo and IV diuretics for treatment. Exam Vital Signs Temp Pulse Resp BP Pulse Ox O2 Del Method O2 Flow Rate 97.9 F 98 15 146/87 H 96 Nasal Cannula 4 02/15/24 19:34 02/15/24 20:05 02/15/24 20:05 02/15/24 20:00 02/15/24 20:05 02/15/24 19:34 02/15/24 20:05 Narrative Exam Physical Exam: GENERAL: Awake, answering questions appropriately, appears older than stated age HEENT: NC/AT. Moist mucosa. PERRLA/EOMI. CARDIO: Heart RRR, no obvious murmurs, no JVD. PULM: No coughing or visible SOB. Lungs CTA B/L. GI: Abdomen soft, NT/ND, +BS. SKIN/MSK/EXT: +3 pitting edema up to bilateral thighs. No wounds/discoloration/rashes/amputations. +Pedal pulses present B/L. NEURO: Oriented x3, supply chain assistant strength 5/5, Moves extremities x4. Results: Labs 02/15/24 13:31 02/15/24 13:31 Labs: Short CBC 02/15/24 Range/Units 13:31 WBC 4.1 (3.6-11.0) Thou/mm3 Hgb 14.7 (12.0-16.0) g/dL Hct 45.3 (36.0-46.0) % Plt Count 176 (140-440) Thou/mm3 BMP 02/15/24 13:31 Sodium 138 Potassium 4.7 Chloride 104 Carbon Dioxide 31.1 H BUN 11 Creatinine 0.6 Glucose 195 H Calcium 8.7 Cardiac Enzymes 02/15/24 Range/Units 13:31 Troponin I < 0.020 (0.0-0.045) ng/mL Liver Function 02/15/24 Range/Units 13:31 Total Bilirubin 0.6 (0.3-1.2) mg/dL AST 59 H (0-34) U/L ALT 68 H (10-49) U/L Alkaline Phosphatase 131 H (46-116) U/L Albumin 3.4 L (3.5-5.0) gm/dL Quality Measures Quality Measures none Medications Home Medications and Allergies Home Medications ?Medication ?Instructions ?Recorded ?Confirmed ?Type albuterol sulfate 90 mcg/actuation 2 puff inhalation Q4HR PRN 06/02/22 02/15/24 History aerosol inhaler Bronchospasm fluticasone propionate 110 1 puff inhalation BID 06/02/22 02/15/24 History mcg/actuation HFA aerosol inhaler (Flovent HFA) bumetanide 0.5 mg tablet 0.5 mg PO 1XD 02/15/24 02/15/24 History carvedilol 3.125 mg tablet 3.125 mg PO BID 02/15/24 02/15/24 History dulaglutide 0.75 mg/0.5 mL 0.75 mg subcut QWEEK 02/15/24 02/15/24 History subcutaneous pen injector (Trulicity) insulin glargine 100 unit/mL (3 20 unit subcut QPM 02/15/24 02/15/24 History mL) subcutaneous pen (Lantus Solostar U-100 Insulin) lisinopril 10 mg tablet 10 mg PO 1XD 02/15/24 02/15/24 History Allergies Allergy/AdvReac Type Severity Reaction Status Date / Time No Known Allergies Allergy Verified 02/15/24 13:03 Visit Medications Acetaminophen (Acetaminophen 325 Mg Tablet) 650 mg PO Q6H PRN PRN Reason: Pain 1-3 and/or Fever >100.1 Stop: 03/16/24 20:35 Albuterol/Ipratropium (Albuterol/Ipratropium (Duoneb) Rt Belia 3 Ml Nebu) 3 ml INH Q4HRRT PRN PRN Reason: Wheezing Stop: 03/16/24 22:59 Bumetanide (Bumetanide Inj 0.25 Mg/Ml Vial 4 Ml) 2 mg IVP BID [facility] Stop: 03/16/24 20:59 Carvedilol (Carvedilol 3.125 Mg Tablet) 3.125 mg PO BID [facility] Stop: 03/16/24 20:59 Dextrose (Dextrose 50%-Water Inj 50 Ml Syringe) 25 ml IV Q15MIN PRN PRN Reason: BG 50-70 responsive npo pt Stop: 03/16/24 20:35 Dextrose (Dextrose 50%-Water Inj 50 Ml Syringe) 50 ml IV Q15MIN PRN PRN Reason: BG <50 OR BG <70 & pt unresponsive Stop: 03/16/24 20:35 Glucagon (Glucagon Inj 1 Mg Vial) 1 mg IM Q15MIN PRN PRN Reason: BG <70, and no IV access Heparin Sodium (Porcine) (Heparin Sod Inj 5000 Unit/Ml Vial) 5,000 unit SC Q12HR [facility] Stop: 02/29/24 20:59 Insulin Human Lispro (Insulin Lispro (Admelog) 1 Unit/0.01 Ml Unit) 0 unit SC [facility]; Protocol Stop: 03/16/24 20:59 Lisinopril (Lisinopril 2.5 Mg Tablet) 10 mg PO QDAY [facility] Stop: 03/16/24 20:59 Ondansetron HCl (Ondansetron Inj 2 Mg/Ml Inj 2 Ml) 4 mg IV Q6H PRN; Protocol PRN Reason: NAUSEA OR VOMITING Stop: 03/16/24 20:35 Sennosides (Senna Tablet) 1 tab PO QDAY [facility]; Protocol Stop: 03/17/24 08:59 Discontinued Medications Albuterol/Ipratropium (Albuterol/Ipratropium (Duoneb) Rt Belia 3 Ml Nebu) 3 ml INH X1 ONE Stop: 02/15/24 18:44 Last Admin: 02/15/24 20:02 Dose: 3 ml Furosemide (Furosemide Inj 10 Mg/Ml 4ml Vial) 40 mg IVP X1 ONE Stop: 02/15/24 18:56 Last Admin: 02/15/24 19:22 Dose: 40 mg Furosemide (Furosemide Inj 10 Mg/Ml 4ml Vial) 40 mg IVP X1 ONE Stop: 02/15/24 20:44 Furosemide (Furosemide Inj 10 Mg/Ml 4ml Vial) 40 mg IVP BIDD [facility] Stop: 03/17/24 05:59 Bumetanide 10 mg/ IV (Miscellaneous Supplies) 40 mls @ 2 mls/hr IV .Q20H [facility] Stop: 02/16/24 16:41 Methylprednisolone Sodium Succinate (Methylprednisolone Sod Succ 62.5 Mg/Ml 2ml Vial) 125 mg IVP X1 ONE Stop: 02/15/24 18:44 Last Admin: 02/15/24 18:48 Dose: 125 mg Morphine Sulfate (Morphine Sulf Inj 10 Mg/Ml Vial) 4 mg IVP X1 ONE Stop: 02/15/24 18:56 Last Admin: 02/15/24 19:22 Dose: 4 mg Nitroglycerin (Nitroglycerin Oint 2% 1 Inch Packet) 1 inch TOP X1 ONE Stop: 02/15/24 18:56 Last Admin: 02/15/24 19:19 Dose: 1 inch Assessment & Plan Plan 55-year-old female with past medical history of hypertension, insulin-dependent type 2 diabetes, obesity, clinically diagnosed CHF and active meth use disorder presenting to the ED on 02/14 for shortness of breath and worsening lower extremity swelling will be admitted for treatment and diagnosis of likely congestive heart failure secondary to meth use disorder, dilated cardiomyopathy pending echo and IV diuretics for treatment. #Acute respiratory failure #Acute CHF exacerbation #Likely Dilated cardiomyopathy NYHA Class III:?Marked limitation in physical activity, and symptoms occur with minimal exertion, such as walking one block Patient has risk factors for developing heart failure along with poorly controlled hypertension, diabetes and active meth use disorder Patient presenting with florid congestive heart failure exacerbation with +3 pitting edema up to bilateral thighs Per patient, she has been having lower extremity edema for the past several weeks but she developed acute shortness of breath Patient currently on 4 L nasal cannula satting 94 Recently seen at [facility] and started on Coreg, Bumex and lisinopril No echo on file Chest x-ray shows mild heart failure and suspicious for right middle lobe pneumonia EKG shows normal sinus rhythm with no concerning ST changes venous Doppler ultrasound is negative for any DVT CTA of the chest shows negative for pulmonary emboli, mild to moderate CHF Troponin negative x2 Plan: IV Bumex 2 mg twice daily Restarted Coreg 3.125 bid, lisinopril 10mg Fluid restriction 1500ml Strict I's and O's Echo ordered Daily weight Cardiac diet #Insulin-dependent type 2 diabetes mellitus A1c of 12.4 on 02/02/2024 Patient states that she is currently on 25 units of Lantus twice daily (morning and night) along with 20 units sliding scale Premeal Plan: Lantus 10u x1 Sliding scale insulin ACHS glucose check Carb consistent low diet #Hypertension Patient on the above medications as listed Currently presents mildly hypertensive blood pressure systolic 130s to 140s Plan: Restarted medications as above #Meth-use disorder Patient actively uses meth daily States that she wants to quit as she is anxious/afraid about the new symptoms of shortness of breath Plan: Social service consult #Metabolic dysfunction-associated steatotic liver disease MASLD vs. Alcohol- induced #Cirrhosis #Splenomegaly #Obesity 6?points Child Class A Life Expectancy : 15-20 years Abdominal surgery sheila- operative mortality: 10% Patient has a BMI of 37.6, history of drinking alcohol but currently sporadic use On CTA showed to have cirrhosis and prominent splenomegaly Plan: Patient needs to establish care with PCP Follow-up with GI outpatient Hospital Management: Lines: PIV Diet: Cardiac + carb consistent low Bowel: Senna GI prophylaxis: Not needed DVT prophylaxis: Heparin subq Dispo: ECHO for suspected CHF and treatment with IV diuretics Code: Full Patient seen and assessed with attending Dr. Maritn and senior resident Dr. Genie Grant, PGY-1
[2024-02-15 21:05] LABS: Collection Type, Urine Clean Catch; Squamous Epithelial Cell,Urine 0 /hpf (0-5)
[2024-02-15 21:17] LABS: Bilirubin,Urine Negative (Negative); Blood,Urine Negative (Negative); Clarity,Urine Clear (Clear/Hazy); Color,Urine Lt-Yellow (Lt Yel-Yel); Culture Indicated,Urine Yes; Glucose, Urine Negative (Negative); Ketones,Urine Negative (Negative); Leukocyte Esterase,Urine Negative (Negative); Nitrite,Urine Positive (Negative); PH,Urine 6.5 (5.0-7.0); Protein,Urine Negative (Neg - Trace); RBC,Urine 2 /hpf (0-3); Urobilinogen,Urine Negative mg/dL (0.0-1.0); WBC,Urine 1 /hpf (0-5)
[2024-02-15] MEDS: INSULIN LISPRO (AdmeLOG) 1 UNIT/0.01 ML UNIT SC (21:17)
[2024-02-15] MEDS: HEPARIN SOD INJ 5000 UNIT/ML VIAL SC (21:18)
[2024-02-15] MEDS: carVEDILOL 3.125 MG TABLET PO (21:20)
[2024-02-15] MEDS: Lisinopril 2.5 MG TABLET 10 MG PO (21:20)
[2024-02-15] MEDS: BUMETANIDE INJ 0.25 MG/ML VIAL 4 ML 2 MG IVP (21:21)
[2024-02-15 21:27] LABS: Troponin I < 0.020 ng/mL (0.0-0.045)
[2024-02-15] MEDS: Magnesium Sulfate 4 GM Ivpb 4 GM/50 ML BAG IV (22:14)
[2024-02-15] MEDS: INSULIN GLARGINE (Lantus) 5 UNIT/0.05 ML (PER 5 UNITS) 10 UNIT SC (22:20)
[2024-02-16] VITALS (14 sets, daily range): BP systolic 117–136; BP diastolic 65–75; PULSE 86–100; RESP 16–25; TEMP 36.1–36.7; O2SAT 93–98; BMI 40.4
[2024-02-16 04:35] LABS: Basophils % (Auto) 0 % (0-2.5); Eosinophils % (Auto) 0 % (0-10); Hematocrit 44.1 % (36.0-46.0); Hemoglobin 14.5 g/dL (12.0-16.0); Immature Granulocytes % (Auto) 0 % (0-0); Immature Granulocytes Auto 0.01 Thou/mm3 (0.00-0.00); Lymphocytes # (Auto) 0.4 Thou/mm3 (1.0-4.8); Lymphocytes % (Auto) 12 % (10-50); Mean Corpuscular HGB Conc 32.9 g/dl (31.0-37.0); Mean Corpuscular Hemoglobin 29.3 pg (25.0-35.0); Mean Corpuscular Volume 89 fL (80-100); Monocytes # (Auto) 0.1 Thou/mm3 (0.0-0.8); Monocytes % (Auto) 3 % (0-12); Neutrophils # (Auto) 3.1 Thou/mm3 (1.8-7.7); Neutrophils % (Auto) 84 % (37-80); Nucleated Red Blood Cell % 0 /100 WBC (0); Platelet Count 168 Thou/mm3 (140-440); RDW Standard Deviation 42.1 fL (36.4-46.3); Red Blood Count 4.95 Miln/mm3 (4.00-5.20); White Blood Count 3.6 Thou/mm3 (3.6-11.0)
[2024-02-16 04:57] LABS: Alanine Aminotransferase 56 U/L (10-49); Albumin, Serum 3.4 gm/dL (3.5-5.0); Anion Gap 6 (7-16); Aspartate Amino Transferase 31 U/L (0-34); BUN/Creatinine Ratio 20 Ratio (12-20); Bilirubin,Total 0.5 mg/dL (0.3-1.2); Blood Urea Nitrogen 12 mg/dL (9-23); Calcium 8.2 mg/dL (8.3-10.6); Calcium (Corrected) 8.7 mg/dL (8.5-10.1); Carbon Dioxide 29.4 mMol/L (20.0-31.0); Chloride 100 mMol/L (98-107); Cholesterol 142 mg/dL (132-200); Creatinine (Component) 0.6 mg/dL (0.6-1.3); Estimated Creatinine Clearance 139.4 mL/min (>60); Globulin 3.3 gm/dL (2.3-3.5); Glucose 372 mg/dL (74-106); HDL Cholesterol 59 mg/dL (40-60); LDL Cholesterol,Calculated 67 mg/dL (0-130); Magnesium 2.2 mg/dL (1.6-2.6); Osmolality,Calculated 284 (275-295); Phosphorous 4.2 mg/dL (2.4-5.1); Potassium 4.3 mMol/L (3.4-5.1); Sodium 135 mMol/L (136-145); Total Protein 6.7 gm/dL (5.7-8.2); Triglycerides 79 mg/dL (30-150); eGFR > 60 See Note
[2024-02-16 04:58] LABS: Alkaline Phosphatase 132 U/L (46-116); Cardiac Risk Estimate 2.4 RATIO (3.7-5.6); Thyroid Stimulating Hormone 0.54 uIU/mL (0.55-4.78)
[2024-02-16] MEDS: INSULIN LISPRO (AdmeLOG) 1 UNIT/0.01 ML UNIT SC ×4 (07:38→20:14)
[2024-02-16 08:38] LABS: Free T4 (Free Thyroxine) 1.31 ng/dL (0.89-1.76)
[2024-02-16] MEDS: INSULIN GLARGINE (Lantus) 5 UNIT/0.05 ML (PER 5 UNITS) SC (09:00)
[2024-02-16] MEDS: BUMETANIDE INJ 0.25 MG/ML VIAL 4 ML 2 MG IVP (09:00)
[2024-02-16] MEDS: HEPARIN SOD INJ 5000 UNIT/ML VIAL SC ×2 (09:08→20:13)
[2024-02-16] MEDS: carVEDILOL 3.125 MG TABLET PO ×2 (09:08→20:17)
[2024-02-16] MEDS: SENNA TABLET 1 TAB PO (09:08)
--- NOTE | 2024-02-16 09:41 | ESPR_ITS ---
Documentation for date of: 02/16/24 Subjective Subjective Interval history: Patient was seen and examined at bedside. No acute events overnight. Patient states that she is feeling better but continues to have +3 lower extremity pitting edema. Crackles auscultated bilaterally. Was receiving breathing treatment at time of rounds. Oxygen saturation 93 to 94%. Currently receiving IV Bumex twice daily--net loss of 1.8 L since admission Continue fluid restriction and strict PALOMA's is still appearing to be fluid overloaded on exam. Restarted Coreg 3.125 twice daily, lisinopril 10 mg. Symptoms of edema shortness of breath worsened in past 2 weeks. Patient admits to methamphetamine use since past 30 years and heavy drinking. Echo is pending Chest CT negative for PE, revealing moderate CHF, cirrhosis, prominent splenomegaly. Possibly related to underlying drug use and alcohol. Vitals within normal limits. Platelets show downtrending pattern--today 168. Bedside glucose 351, A1c 12.4, obese body habitus. Will start patient on 20 units glargine on 02/16 Review of systems otherwise negative except what is mentioned above. Exam Vital Signs Temp Pulse Resp BP Pulse Ox O2 Del Method O2 Flow Rate 97.0 F 94 18 124/70 96 Nasal Cannula 2 02/16/24 08:00 02/16/24 09:08 02/16/24 09:03 02/16/24 09:08 02/16/24 09:03 02/16/24 08:00 02/16/24 09:03 Narrative Exam General: Alert and oriented x3. No acute distress, cooperative Eyes: Pupils are equal and reactive to light bilaterally HEENT: Atraumatic, normocephalic. No JVD noted. Mucosa moist. Cardiovascular: Normal S1 and S2. Regular rate and rhythm. 3+ pitting edema to b/L bolden Respiratory: b/L crackles Abdomen: Soft, nontender, obese, normal bowel sounds. Skin: Warm to touch, dry, no rashes noted Musculoskeletal: No gross injuries. Able to move all 4 extremities. Neuro: Alert and oriented x3. No focal neuro deficits. Psych: Normal affect and mood Objective Labs 02/17/24 05:36 02/17/24 05:36 Labs: Laboratory Results - last 24 hr 02/15/24 02/15/24 02/15/24 13:13 13:31 16:08 WBC 4.1 RBC 5.06 Hgb 14.7 Hct 45.3 MCV 90 MCH 29.1 MCHC 32.5 RDW Std Deviation 42.7 Plt Count 176 Neut % (Auto) 60 Lymph % (Auto) 29 Coleman % (Auto) 9 Eos % (Auto) 1 Baso % (Auto) 1 Neut # (Auto) 2.5 Lymph # (Auto) 1.2 Coleman # (Auto) 0.4 Eos # (Auto) 0.1 Baso # (Auto) 0.0 Immature Gran # (Auto) 0.00 Absolute Nucleated RBC 0.00 Immature Gran % 0 Nucleated RBC % 0 PT 11.3 INR 1.0 APTT 25.1 D-Dimer 644 H Sodium 138 Potassium 4.7 Chloride 104 Carbon Dioxide 31.1 H Anion Gap 3 L BUN 11 Creatinine 0.6 Estim Creat Clear Calc 139.4 eGFR > 60 BUN/Creatinine Ratio 18 Glucose 195 H Calculated Osmolality 280 Calcium 8.7 Corrected Calcium 9.2 Phosphorus Magnesium 1.6 Total Bilirubin 0.6 AST 59 H ALT 68 H Alkaline Phosphatase 131 H Lactate Dehydrogenase 253 H Troponin I < 0.020 B-Natriuretic Peptide 161 H Total Protein 6.9 Albumin 3.4 L Globulin 3.5 Albumin/Globulin Ratio 1.0 L Triglycerides Cholesterol LDL Cholesterol, Calc HDL Cholesterol Cholesterol/HDL Ratio TSH Free T4 Ur Collection Type Urine Color Urine Clarity Urine pH Ur Specific [place] Urine Protein Urine Glucose (UA) Urine Ketones Urine Blood Urine Nitrite Urine Bilirubin Urine Urobilinogen (Auto) Ur Leukocyte Esterase Urine RBC Urine WBC Ur Squamous Epith Cells Urine Bacteria Ur Culture Indicated? Urine Opiates Screen Negative Urine Fentanyl Screen Negative Ur Barbiturates Screen Negative U Amphetamin/Meth Scrn Positive A U Benzodiazepines Scrn Negative U Cocaine Metab Screen Negative U Marijuana (THC) Screen Negative Ethyl Alcohol < 3.0 02/15/24 02/15/24 02/16/24 20:42 20:59 04:20 WBC 3.6 RBC 4.95 Hgb 14.5 Hct 44.1 MCV 89 MCH 29.3 MCHC 32.9 RDW Std Deviation 42.1 Plt Count 168 Neut % (Auto) 84 H Lymph % (Auto) 12 Coleman % (Auto) 3 Eos % (Auto) 0 Baso % (Auto) 0 Neut # (Auto) 3.1 Lymph # (Auto) 0.4 L Coleman # (Auto) 0.1 Eos # (Auto) 0.0 Baso # (Auto) 0.0 Immature Gran # (Auto) 0.01 H Absolute Nucleated RBC 0.00 Immature Gran % 0 Nucleated RBC % 0 PT INR APTT D-Dimer Sodium 135 L Potassium 4.3 Chloride 100 Carbon Dioxide 29.4 Anion Gap 6 L BUN 12 Creatinine 0.6 Estim Creat Clear Calc 139.4 eGFR > 60 BUN/Creatinine Ratio 20 Glucose 372 H D Calculated Osmolality 284 Calcium 8.2 L Corrected Calcium 8.7 Phosphorus 4.2 Magnesium 2.2 Total Bilirubin 0.5 AST 31 ALT 56 H Alkaline Phosphatase 132 H Lactate Dehydrogenase Troponin I < 0.020 B-Natriuretic Peptide Total Protein 6.7 Albumin 3.4 L Globulin 3.3 Albumin/Globulin Ratio 1.0 L Triglycerides 79 Cholesterol 142 LDL Cholesterol, Calc 67 HDL Cholesterol 59 Cholesterol/HDL Ratio 2.4 L TSH 0.54 L Free T4 1.31 Ur Collection Type Clean Catch Urine Color Lt-Yellow Urine Clarity Clear Urine pH 6.5 Ur Specific [place] 1.020 Urine Protein Negative Urine Glucose (UA) Negative Urine Ketones Negative Urine Blood Negative Urine Nitrite Positive Urine Bilirubin Negative Urine Urobilinogen (Auto) Negative Ur Leukocyte Esterase Negative Urine RBC 2 Urine WBC 1 Ur Squamous Epith Cells 0 Urine Bacteria None Ur Culture Indicated? Yes Urine Opiates Screen Urine Fentanyl Screen Ur Barbiturates Screen U Amphetamin/Meth Scrn U Benzodiazepines Scrn U Cocaine Metab Screen U Marijuana (THC) Screen Ethyl Alcohol Quality Measures Quality Measures none Assessment & Plan Assessment Current Active Medications: Generic Name Dose Route Start Last Admin Trade Name Freq PRN Reason Stop Dose Admin Acetaminophen 650 mg 02/15/24 20:36 Acetaminophen 325 Mg Tablet PO 03/16/24 20:35 Q6H PRN Pain 1-3 and/or Fever >100.1 Albuterol/Ipratropium 3 ml 02/15/24 20:47 Albuterol/Ipratropium (Duoneb) Rt Belia 3 Ml Nebu INH 03/16/24 22:59 Q4HRRT PRN Wheezing Bumetanide 2 mg 02/15/24 21:00 02/16/24 09:00 Bumetanide Inj 0.25 Mg/Ml Vial 4 Ml IVP 03/16/24 20:59 2 mg BID ROSARIO Administration Carvedilol 3.125 mg 02/15/24 21:00 02/16/24 09:08 Carvedilol 3.125 Mg Tablet PO 03/16/24 20:59 3.125 mg BID ROSARIO Administration Dextrose 25 ml 02/15/24 20:36 Dextrose 50%-Water Inj 50 Ml Syringe IV 03/16/24 20:35 Q15MIN PRN BG 50-70 responsive npo pt Dextrose 50 ml 02/15/24 20:36 Dextrose 50%-Water Inj 50 Ml Syringe IV 03/16/24 20:35 Q15MIN PRN BG <50 OR BG <70 & pt unresponsive Glucagon 1 mg 02/15/24 20:36 Glucagon Inj 1 Mg Vial IM Q15MIN PRN BG <70, and no IV access Heparin Sodium (Porcine) 5,000 unit 02/15/24 21:00 02/16/24 09:08 Heparin Sod Inj 5000 Unit/Ml Vial SC 02/29/24 20:59 5,000 unit Q12HR ROSARIO Administration Insulin Human Lispro 0 unit 02/15/24 21:00 02/16/24 07:38 Insulin Lispro (Admelog) 1 Unit/0.01 Ml Unit SC 03/16/24 20:59 10 unit ACHS ROSARIO Administration Protocol Lisinopril 10 mg 02/15/24 21:00 02/15/24 21:20 Lisinopril 2.5 Mg Tablet PO 03/16/24 20:59 10 mg QDAY@2100 ROSARIO Administration Ondansetron HCl 4 mg 02/15/24 20:36 Ondansetron Inj 2 Mg/Ml Inj 2 Ml IV 03/16/24 20:35 Q6H PRN NAUSEA OR VOMITING Protocol Sennosides 1 tab 02/16/24 09:00 02/16/24 09:08 Senna Tablet PO 03/17/24 08:59 1 tab QDAY ROSARIO Administration Protocol Plan 55-year-old female with past medical history of hypertension, insulin-dependent type 2 diabetes, obesity, clinically diagnosed CHF and active meth use disorder presenting to the ED on 02/14 for shortness of breath and worsening lower extremity swelling will be admitted for treatment and diagnosis of likely congestive heart failure secondary to meth use disorder, dilated cardiomyopathy pending echo and IV diuretics for treatment. #AHRF 2/2 #Acute CHF exacerbation Most likely meth induced + chronic HTN dilated cardiomyopathy. Use of 30+ yrs. Patient presenting with florid congestive heart failure exacerbation with +3 pitting edema up to bilateral thighs. Per patient, she has been having lower extremity edema for the past several weeks but she developed acute shortness of breath. Chest x-ray shows mild heart failure and suspicious for right middle lobe pneumonia. CTA of the chest shows negative for pulmonary emboli, mild to moderate CHF, negative doppler. -NYHA Class III:?Marked limitation in physical activity, and symptoms occur with minimal exertion, such as walking one block -recent started on Coreg, Bumex and lisinopril by [facility]. (not goal directed medical therapy) -echo is pending -IV Bumex 2 mg twice daily to once daily -continue Coreg 3.125 bid, lisinopril 10mg -Fluid restriction 1500ml -Strict I's and O's -Daily weight -Cardiac diet -duneb PRN #Hx poorly controlled, Insulin-dependent type 2 diabetes mellitus A1c of 12.4 on 02/02/2024 Patient states that she is currently on 25 units of Lantus twice daily (morning and night) along with 20 units sliding scale Premeal -start 20 untis glargine 02/17/24 -Sliding scale insulin -ACHS glucose check -Carb consistent low diet #Hx Hypertension Patient on the above medications as listed Currently presents mildly hypertensive blood pressure systolic 130s to 140s -coreg 3.125 BID -lisinopril 10 mg daily #Meth-use disorder Patient actively uses meth daily States that she wants to quit as she is anxious/afraid about the new symptoms of shortness of breath Plan: Social service consult #Liver cirrhosis 2/2 #Alcohol use disorder #Splenomegaly Cirrhosis and prominent splenomegaly on CTA. Labs show history of downtrending platelets no concern for critically low level at this time. However we will continue to monitor. May likely be due to splenic sequestration. -Child calderón score 6 (class A) Expectancy : 15-20 years -sheila-operative mortality: 10% -counselor education professor on abstinenec -community mental health social worker #Obesity Patient has a BMI of 40 -out patient mgmt -possible GLP1 on d/c Hospital Management: Lines: PIV Diet: Cardiac + carb consistent low Bowel: Senna GI prophylaxis: Not needed DVT prophylaxis: Heparin subq Dispo: ECHO for suspected CHF and treatment with IV diuretics Code: Full The patient's management plan was discussed with my attending physician Dr. Ruiz and senior Dr. Holland. Marian Gomez, PGY-1 L Ms Lombardo is a 55-year-old female with past medical history of hypertension, insulin-dependent type 2 diabetes, obesity, methamphetamine and alcohol use disorder, and recently diagnosed CHF who was admitted on 02/14 for shortness of breath and worsening lower extremity swelling likely acute decompensation of congestive heart failure. She was started on IV Bumetanide 2mg BID, net balance -2.6L since admission. Pending echo for final evaluation. She is currently on 2- 3L via NC, saturating 96-98%. PT evaluation is ordered. Patient follows up at [facility] and has a referral to see Dr Arreguin for outpatient management. Patient examined and case discussed with the team including attending physician. Note reviewed, I agree with the care plan as documented. - Aamir Holland MD, PGY 2 Attending Provider Attestation/Addendum I have examined the patient, reviewed labs and imaging findings, discussed the case with the resident(s), and reviewed entered orders. I agree with the plan of care as outlined in this note, with these additional summaries/recommendations: Patient seen at bedside. Patient was admitted overnight for acute hypoxic respiratory failure most likely secondary to CHF exacerbation. Patient was recently seen by PCP and prescribed goal-directed medical therapy for presumptive heart failure. Echocardiogram ordered. Strict I's and O's and fluid resuscitation. Continue IV diuresis Bumex 2 mg twice daily, Coreg 3.125 p.o. twice daily, and lisinopril. We will adjust goal-directed medical therapy as needed based off echocardiogram results. Continue breathing treatments as needed. Continue basal and bolus insulin for uncontrolled diabetes mellitus type 2. A1c 12.4%. Diabetic education and diet. Urine toxicology positive for amphetamines and community mental health social worker consult for resources. Cirrhosis found on imaging although appears compensated and no evidence of synthetic liver dysfunction at this time. Patient reports she was a previous drinker. No CIWA needed at this time although will continue to monitor. Repeat hematology and chemistry panel in AM. Dr. Ruiz
--- NOTE | 2024-02-16 15:25 | PC.SS ---
Chela Lombardo is 54 year old female admitted to [facility] for CHF exacerbation. SS conducted bedside contact with the patient to complete initial assessment and to discuss discharge planning. SW used all precautionary measures to complete initial. Role and reason for the contact was explained to Chela. Pt is alert and oriented times 4. Patient confirmed demographic information [place] [address], [place]. Pt confirmed this is a RV and she lives next door to her best friend. Patient identifies Philip Garcia, cousin, as her surrogate decision maker. Pt was observed emotional and crying stating she wants to receive outpatient services for drug use. Pt has a 30 year meth use and has not attempted rehabilitation. Pt has daughter who has successfully completed rehabilitation and feels daughter will be a strong advocate. Pt was provided community resources. Pt states she has been diagnosed with mental health before and is not currently seeing a therapist. Pt is familiar with [facility] ([facility]) and plans to reestablish relationship with them. Pt lost her about 5 years ago and feels the grief has added to her challenges. Pt has large family and strong friends who can assist. Pt asked for information on how to better cope with her diabetes. Pt states she has been completing all diabetes medication as indicated. SS will discuss with dietitian on services. Pt states prior to hospitalization she is able to complete most ADL?s independently. Pt does not use DME; at time of assessment pt was using O2. Pt will need O2 upon discharge, if necessary. Pts PCP is Dr Fabian. Discharge options discussed and the pt will go home. Family will provide transportation upon DC. No further intervention required at this time, marriage and family social worker would be available to address any further concerns. Address: updated [address], [facility] Plan: Home Contact: Philip Garcia, cousin, PCP: Dr Fabian
--- NOTE | 2024-02-16 17:00 | PC.SS ---
Sho from registration to update address
[2024-02-16] MEDS: BUMETANIDE INJ 0.25 MG/ML VIAL 4 ML 1 MG IVP (20:13)
[2024-02-16] MEDS: Lisinopril 2.5 MG TABLET 10 MG PO (20:18)
[2024-02-17] VITALS (13 sets, daily range): BP systolic 138–173; BP diastolic 76–88; PULSE 87–105; RESP 14–20; TEMP 36.1–36.9; O2SAT 91–98; BMI 40.2; BMI 40.0
[2024-02-17 06:01] LABS: Basophils % (Auto) 1 % (0-2.5); Eosinophils # (Auto) 0.1 Thou/mm3 (0.0-0.5); Eosinophils % (Auto) 2 % (0-10); Hematocrit 42.2 % (36.0-46.0); Hemoglobin 13.8 g/dL (12.0-16.0); Immature Granulocytes % (Auto) 0 % (0-0); Immature Granulocytes Auto 0.02 Thou/mm3 (0.00-0.00); Lymphocytes # (Auto) 1.7 Thou/mm3 (1.0-4.8); Lymphocytes % (Auto) 29 % (10-50); Mean Corpuscular HGB Conc 32.7 g/dl (31.0-37.0); Mean Corpuscular Hemoglobin 29.4 pg (25.0-35.0); Mean Corpuscular Volume 90 fL (80-100); Monocytes # (Auto) 0.5 Thou/mm3 (0.0-0.8); Monocytes % (Auto) 9 % (0-12); Neutrophils # (Auto) 3.4 Thou/mm3 (1.8-7.7); Neutrophils % (Auto) 59 % (37-80); Nucleated Red Blood Cell % 0 /100 WBC (0); Platelet Count 121 Thou/mm3 (140-440); RDW Standard Deviation 42.2 fL (36.4-46.3); White Blood Count 5.7 Thou/mm3 (3.6-11.0)
[2024-02-17 06:37] LABS: Alanine Aminotransferase 49 U/L (10-49); Albumin, Serum 3.3 gm/dL (3.5-5.0); Alkaline Phosphatase 108 U/L (46-116); Anion Gap 4 (7-16); Aspartate Amino Transferase 30 U/L (0-34); BUN/Creatinine Ratio 26 Ratio (12-20); Bilirubin,Total 0.5 mg/dL (0.3-1.2); Blood Urea Nitrogen 21 mg/dL (9-23); Calcium 8.2 mg/dL (8.3-10.6); Calcium (Corrected) 8.8 mg/dL (8.5-10.1); Carbon Dioxide 30.1 mMol/L (20.0-31.0); Chloride 100 mMol/L (98-107); Creatinine (Component) 0.8 mg/dL (0.6-1.3); Estimated Creatinine Clearance 97.9 mL/min (>60); Globulin 3.2 gm/dL (2.3-3.5); Glucose 264 mg/dL (74-106); Osmolality,Calculated 280 (275-295); Potassium 4.5 mMol/L (3.4-5.1); Sodium 134 mMol/L (136-145); Total Protein 6.5 gm/dL (5.7-8.2); eGFR > 60 See Note
[2024-02-17] MEDS: INSULIN LISPRO (AdmeLOG) 1 UNIT/0.01 ML UNIT SC ×4 (08:00→20:12)
[2024-02-17] MEDS: ALBUTEROL/IPRATROPIUM (Duoneb) RT SOL 3 ML NEBU INH (08:29)
[2024-02-17] MEDS: SENNA TABLET 1 TAB PO (09:16)
[2024-02-17] MEDS: carVEDILOL 3.125 MG TABLET 6.25 MG PO ×2 (09:16→20:07)
[2024-02-17] MEDS: INSULIN GLARGINE (Lantus) 5 UNIT/0.05 ML (PER 5 UNITS) 15 UNIT SC (09:17)
[2024-02-17] MEDS: BUMETANIDE 0.5 MG TABLET 1 MG PO ×3 (09:17→20:08)
[2024-02-17] MEDS: INSULIN LISPRO (AdmeLOG) 1 UNIT/0.01 ML UNIT 5 UNIT SC (09:20)
[2024-02-17] MEDS: HEPARIN SOD INJ 5000 UNIT/ML VIAL SC ×2 (09:21→20:10)
--- NOTE | 2024-02-17 10:13 | PD.RESPRO ---
Documentation for date of: 02/17/24 Subjective Subjective Interval history: Patient seen and examined at bedside. No overnight events. Patient denies any chest pain, cough, palpitations but continues to have some shortness of breath. Still appears fluid overloaded with +2 lower extremity edema extending to shins, auscultated wheezing but no crackles, no JVD. Net negative of 2.8 L Echo is pending Will increase Bumex to 2 mg in the morning and 1 mg in the evening. Continue with fluid restriction and strict PALOMA's. Is hypertensive with blood pressure 150?160s. Increase Coreg to 6.25 BID lisinopril 10 mg daily. Possibly start goal-directed medical therapy pending echo results Sodium 134, potassium 4.5, creatinine 0.8. Exam Vital Signs Temp Pulse Resp BP Pulse Ox O2 Del Method O2 Flow Rate 97.9 F 96 18 148/88 H 98 Nasal Cannula 5 02/17/24 08:00 02/17/24 09:17 02/17/24 08:36 02/17/24 09:17 02/17/24 08:36 02/17/24 08:00 02/17/24 08:36 Narrative Exam General: Alert and oriented x3. No acute distress, cooperative Eyes: Pupils are equal and reactive to light bilaterally HEENT: Atraumatic, normocephalic. No JVD noted. Mucosa moist. Cardiovascular: Normal S1 and S2. Regular rate and rhythm. 3+ pitting edema to b/Lknee Respiratory: b/L wheezing Abdomen: Soft, nontender, obese, normal bowel sounds. Skin: Warm to touch, dry, no rashes noted Musculoskeletal: No gross injuries. Able to move all 4 extremities. Neuro: Alert and oriented x3. No focal neuro deficits. Psych: Normal affect and mood Objective Labs 02/17/24 05:36 02/17/24 05:36 Labs: Laboratory Results - last 24 hr 02/17/24 05:36 WBC 5.7 D RBC 4.70 Hgb 13.8 Hct 42.2 MCV 90 MCH 29.4 MCHC 32.7 RDW Std Deviation 42.2 Plt Count 121 L D Neut % (Auto) 59 Lymph % (Auto) 29 Grundy % (Auto) 9 Eos % (Auto) 2 Baso % (Auto) 1 Neut # (Auto) 3.4 Lymph # (Auto) 1.7 Grundy # (Auto) 0.5 Eos # (Auto) 0.1 Baso # (Auto) 0.0 Immature Gran # (Auto) 0.02 H Absolute Nucleated RBC 0.00 Immature Gran % 0 Nucleated RBC % 0 Sodium 134 L Potassium 4.5 Chloride 100 Carbon Dioxide 30.1 Anion Gap 4 L BUN 21 Creatinine 0.8 Estim Creat Clear Calc 97.9 eGFR > 60 BUN/Creatinine Ratio 26 H Glucose 264 H D Calculated Osmolality 280 Calcium 8.2 L Corrected Calcium 8.8 Total Bilirubin 0.5 AST 30 ALT 49 Alkaline Phosphatase 108 D Total Protein 6.5 Albumin 3.3 L Globulin 3.2 Albumin/Globulin Ratio 1.0 L Quality Measures Quality Measures none Assessment & Plan Assessment Current Active Medications: Generic Name Dose Route Start Last Admin Trade Name Freq PRN Reason Stop Dose Admin Acetaminophen 650 mg 02/15/24 20:36 Acetaminophen 325 Mg Tablet PO 03/16/24 20:35 Q6H PRN Pain 1-3 and/or Fever >100.1 Albuterol/Ipratropium 3 ml 02/15/24 20:47 02/17/24 08:29 Albuterol/Ipratropium (Duoneb) Rt Belia 3 Ml Nebu INH 03/16/24 22:59 3 ml Q4HRRT PRN Administration Wheezing Bumetanide 1 mg 02/17/24 09:00 02/17/24 09:17 Bumetanide 0.5 Mg Tablet PO 03/18/24 08:59 1 mg BID ROSARIO Administration Carvedilol 6.25 mg 02/17/24 09:00 02/17/24 09:16 Carvedilol 3.125 Mg Tablet PO 03/18/24 08:59 6.25 mg BID ROSARIO Administration Dextrose 25 ml 02/15/24 20:36 Dextrose 50%-Water Inj 50 Ml Syringe IV 03/16/24 20:35 Q15MIN PRN BG 50-70 responsive npo pt Dextrose 50 ml 02/15/24 20:36 Dextrose 50%-Water Inj 50 Ml Syringe IV 03/16/24 20:35 Q15MIN PRN BG <50 OR BG <70 & pt unresponsive Glucagon 1 mg 02/15/24 20:36 Glucagon Inj 1 Mg Vial IM Q15MIN PRN BG <70, and no IV access Heparin Sodium (Porcine) 5,000 unit 02/15/24 21:00 12/26/24 09:21 Heparin Sod Inj 5000 Unit/Ml Vial SC 02/29/24 20:59 5,000 unit Q12HR ROSARIO Administration Insulin Glargine 15 unit 02/17/24 09:00 02/17/24 09:17 Insulin Glargine (Lantus) 5 Unit/0.05 Ml (Per 5 Units) SC 03/18/24 08:59 15 unit QDAY ROSARIO Administration Insulin Human Lispro 0 unit 02/15/24 21:00 02/17/24 08:00 Insulin Lispro (Admelog) 1 Unit/0.01 Ml Unit SC 03/16/24 20:59 8 unit ACHS ROSARIO Administration Protocol Lisinopril 10 mg 02/15/24 21:00 02/16/24 20:18 Lisinopril 2.5 Mg Tablet PO 03/16/24 20:59 10 mg QDAY@2100 ROSARIO Administration Ondansetron HCl 4 mg 02/15/24 20:36 Ondansetron Inj 2 Mg/Ml Inj 2 Ml IV 03/16/24 20:35 Q6H PRN NAUSEA OR VOMITING Protocol Sennosides 1 tab 02/16/24 09:00 02/17/24 09:16 Senna Tablet PO 03/17/24 08:59 1 tab QDAY ROSARIO Administration Protocol Plan 55-year-old female with past medical history of hypertension, insulin-dependent type 2 diabetes, obesity, clinically diagnosed CHF and active meth use disorder presenting to the ED on 02/14 for shortness of breath and worsening lower extremity swelling will be admitted for treatment and diagnosis of likely congestive heart failure secondary to meth use disorder, dilated cardiomyopathy pending echo and IV diuretics for treatment. #AHRF 2/2 #Acute CHF exacerbation Most likely meth induced + chronic HTN dilated cardiomyopathy. Use of 30+ yrs. Patient presenting with florid congestive heart failure exacerbation with +3 pitting edema up to bilateral thighs. Per patient, she has been having lower extremity edema for the past several weeks but she developed acute shortness of breath. Chest x-ray shows mild heart failure and suspicious for right middle lobe pneumonia. CTA of the chest shows negative for pulmonary emboli, mild to moderate CHF, negative doppler. -NYHA Class III:?Marked limitation in physical activity, and symptoms occur with minimal exertion, such as walking one block -recent started on Coreg, Bumex and lisinopril by [facility] (not goal directed medical therapy) -echo is pending -IV Bumex 2 mg AM and 1 mg PM -increase Coreg 6.25 BID, continue lisinopril 10mg -Fluid restriction 1500ml -Strict I's and O's -Daily weight -Cardiac diet -duneb PRN #Hx poorly controlled, Insulin-dependent type 2 diabetes mellitus A1c of 12.4 on 02/02/2024 Patient states that she is currently on 25 units of Lantus twice daily (morning and night) along with 20 units sliding scale Premeal -start 20 untis glargine 02/17/24 -Sliding scale insulin -ACHS glucose check -Carb consistent low diet #Hx Hypertension Patient on the above medications as listed Currently presents mildly hypertensive blood pressure systolic 130s to 140s -coreg 6.25 BID -lisinopril 10 mg daily #Meth-use disorder Patient actively uses meth daily States that she wants to quit as she is anxious/afraid about the new symptoms of shortness of breath Plan: Social service consult #Liver cirrhosis 2/2 #Alcohol use disorder #Splenomegaly Cirrhosis and prominent splenomegaly on CTA. Labs show history of downtrending platelets no concern for critically low level at this time. However we will continue to monitor. May likely be due to splenic sequestration. -Child calderón score 6 (class A) Expectancy : 15-20 years -sheila-operative mortality: 10% -residential treatment counselor on abstinenec -social work professor #Obesity Patient has a BMI of 40 -out patient mgmt -possible GLP1 on d/c Hospital Management: Lines: PIV Diet: Cardiac + carb consistent low Bowel: Senna GI prophylaxis: Not needed DVT prophylaxis: Heparin subq Dispo: ECHO for suspected CHF and treatment with IV diuretics Code: Full The patient's management plan was discussed with my attending physician Dr. Spencer and senior Dr. Almeida. Marian Gomez, PGY-1 Attending Provider Attestation/Addendum I have discussed and was present for the essential components of the history, physical examination, diagnosis, and treatment plan with the resident. I agree with the patient's care as documented by the resident and amended herein by me. Johnnie Spencer DO. Patient seen and evaluated this AM. Vital signs stable, patient afebrile overnight. I/oh 1940/3000 mL, 106 kg. Labs largely unremarkable. Will continue diuresing, will increase Bumex to 2 mg in the a.m., 1 mg in the afternoon, will also continue Coreg for now. Echocardiogram pending. Blood glucose still in the 200s today, will adjust to meet goal of 140-180. Possible DC in 1 to 2 days pending continued improvement. Although this document has been carefully reviewed, there may still be some phonetic and other typographical errors. These errors are purely grammatical due to imperfections in the software program and should not be construed in any way to compromise the substance of the patient's medical care during this visit.
[2024-02-17] MEDS: Lisinopril 2.5 MG TABLET 10 MG PO (20:07)
[2024-02-18] VITALS (10 sets, daily range): BP systolic 135–167; BP diastolic 75–88; PULSE 74–95; RESP 16–20; TEMP 36.1–37.2; O2SAT 85–98
[2024-02-18 05:59] LABS: Basophils % (Auto) 1 % (0-2.5); Eosinophils # (Auto) 0.1 Thou/mm3 (0.0-0.5); Eosinophils % (Auto) 2 % (0-10); Hematocrit 45.6 % (36.0-46.0); Immature Granulocytes % (Auto) 0 % (0-0); Immature Granulocytes Auto 0.01 Thou/mm3 (0.00-0.00); Lymphocytes # (Auto) 1.6 Thou/mm3 (1.0-4.8); Lymphocytes % (Auto) 29 % (10-50); Mean Corpuscular HGB Conc 32.9 g/dl (31.0-37.0); Mean Corpuscular Hemoglobin 29.4 pg (25.0-35.0); Mean Corpuscular Volume 89 fL (80-100); Monocytes # (Auto) 0.5 Thou/mm3 (0.0-0.8); Monocytes % (Auto) 9 % (0-12); Neutrophils # (Auto) 3.3 Thou/mm3 (1.8-7.7); Neutrophils % (Auto) 60 % (37-80); Nucleated Red Blood Cell % 0 /100 WBC (0); Platelet Count 147 Thou/mm3 (140-440); RDW Standard Deviation 41.2 fL (36.4-46.3); White Blood Count 5.6 Thou/mm3 (3.6-11.0)
[2024-02-18 07:07] LABS: Alanine Aminotransferase 54 U/L (10-49); Albumin, Serum 3.5 gm/dL (3.5-5.0); Alkaline Phosphatase 114 U/L (46-116); Anion Gap 5 (7-16); Aspartate Amino Transferase 61 U/L (0-34); BUN/Creatinine Ratio 28 Ratio (12-20); Bilirubin,Total 0.9 mg/dL (0.3-1.2); Blood Urea Nitrogen 17 mg/dL (9-23); Calcium 8.7 mg/dL (8.3-10.6); Calcium (Corrected) 9.1 mg/dL (8.5-10.1); Carbon Dioxide 33.1 mMol/L (20.0-31.0); Chloride 97 mMol/L (98-107); Creatinine (Component) 0.6 mg/dL (0.6-1.3); Estimated Creatinine Clearance 127.3 mL/min (>60); Globulin 3.4 gm/dL (2.3-3.5); Glucose 167 mg/dL (74-106); Osmolality,Calculated 275 (275-295); Potassium 4.1 mMol/L (3.4-5.1); Sodium 135 mMol/L (136-145); Total Protein 6.9 gm/dL (5.7-8.2); eGFR > 60 See Note
[2024-02-18] MEDS: INSULIN LISPRO (AdmeLOG) 1 UNIT/0.01 ML UNIT SC ×2 (07:44→12:32)
[2024-02-18] MEDS: INSULIN GLARGINE (Lantus) 5 UNIT/0.05 ML (PER 5 UNITS) 20 UNIT SC (09:48)
[2024-02-18] MEDS: BUMETANIDE 0.5 MG TABLET 2 MG PO (09:52)
[2024-02-18] MEDS: Lisinopril 20 MG TABLET PO (09:57)
[2024-02-18] MEDS: carVEDILOL 3.125 MG TABLET 6.25 MG PO (09:57)
[2024-02-18] MEDS: SENNA TABLET 1 TAB PO (09:57)
--- NOTE | 2024-02-18 10:19 | PC.SS ---
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 Addendum entered by Mariah Ramirez 02/18/24 14:37: [facility] has auth and pending delivery time. SS met with patient to provide drug rehab resources. Patient will be staying with her cousin at her home due to patient not wanting to return to her home where there is temptation for drug use. Addendum entered by Mariah Ramirez 02/18/24 11:46: Patient was accepted by [facility] and they are actively working on prior authorization. d/c pending 02 delivery Addendum entered by Mariah Ramirez 02/18/24 10:27: Pending nursing documentation of 02 sats Original Note: Follow up note: SS spoke to nursing who states patient will now need new home 02. Patient was below 88% on room air at rest.
--- NOTE | 2024-02-18 10:42 | PC.NURSE ---
Pt O2 88% at rest during O2 test
[2024-02-18] MEDS: ALBUTEROL/IPRATROPIUM (Duoneb) RT SOL 3 ML NEBU INH (10:59)
--- NOTE | 2024-02-18 12:23 | PD.RESDS ---
Planned Discharge Date 02/18/24 DS: Providers Provider Date of admission: 02/15/24 20:36 Primary care physician: Yeyo Fabian MD Admitting Provider: Albin Martin MD Attending Provider on Admission: Dylan Gratn MD Consults: 02/15/24 23:23 Referral Physical Therapy Routine Comment: Physician Instructions: 02/16/24 19:45 Referral Registered Dietitian Routine Comment: Poorly controlled diabetic, A1c 12.4 Attending Provider on DC: José Spencer DO Discharging Provider: Aamir Holland MD DS: Diagnosis Problem List Completed Was Problem List Reviewed/Reconciled?: Yes Hospital Course Hospital Course Hospital course: Hospital Course: Ms Lombardo is a 55-year-old female with past medical history of hypertension, insulin-dependent type 2 diabetes, obesity, clinically diagnosed CHF and active meth use disorder presenting to the ED on 02/14 for shortness of breath and worsening lower extremity swelling will be admitted for treatment and diagnosis of likely congestive heart failure secondary to meth use disorder, dilated cardiomyopathy. Patient is NYHA Class III at baseline. She was recently started on Coreg, Bumex and lisinopril by [facility]. In hospital, she was treated with IV Bumetanide and fluid restriction. shortness of breath improved, she is able to ambulate independently without need for oxygen now. Medications altered and patient counseled regarding drug use. Problems on this admission: - AHRF , secondary to - Acute CHF exacerbation - Insulin-dependent type 2 diabetes mellitus, poorly controlled - Essential Hypertension - Meth-use disorder - Liver cirrhosis 2/2 - Alcohol use disorder - Splenomegaly - Obesity Procedures: None Discharge instructions: - Follow up with PCP in 1 week from discharge - Get referral to see Cardiology outpatient for management of Heart failure - Take bumetanide 1mg daily for heart failure - Lisinopril increased from 10mg to 20mg daily for BP control - Carvedilol increased from 3.125 to 6.25mg twice a daily - Stop Lantus. Started on Insulin Degludec 20units every night for diabetes, continue Trulicity injections - Return to ED if symptoms worsen We are grateful to be able to participate in Mr Rogers's care. We wish him the best. - Aamir Holland MD Status at Discharge Cognitive/behavioral status at discharge: Stable and returned to baseline Time Spent with Patient Time attestation: Total time spent providing and/or coordinating discharge services: More than 50% Exam Vital Signs Temp Pulse Resp BP Pulse Ox O2 Del Method O2 Flow Rate 96.9 F 86 17 149/84 H 85 L Nasal Cannula 3 02/18/24 08:00 02/18/24 11:01 02/18/24 11:01 02/18/24 09:57 02/18/24 11:01 02/18/24 08:00 02/18/24 11:01 Narrative Exam Constitutional Alert, oriented x4. Obese HEENT Vision grossly intact. Patent nares. Trachea midline. Respiratory Chest normal on inspection and clear to auscultation bilaterally. Cardiovascular S1 and S2 audible, RRR. No murmurs or carotid bruit. No gross JVD. Abdominal Soft and non tender to palpation in all quadrants. BS + Genitourinary No bladder tenderness, no flank pain. Normal to palpation. Musculoskeletal Extremities tone within normal limits. 1+ LE edema. Neurological CN II - XII grossly intact. Extremity motor and sensation grossly intact. Skin Warm, dry and intact. Ante-cubital needle isbell. Psychiatric Patient has a good affect, is cooperative. Discharge Plan Plan Patient Disposition: HOME (Self Care) Patient condition on transfer: Stable Care Plan Goals: - Follow up with PCP in 1 week from discharge - Get referral to see Cardiology outpatient for management of Heart failure - Take bumetanide 1mg daily for heart failure - Lisinopril increased from 10mg to 20mg daily for BP control - Carvedilol increased from 3.125 to 6.25mg twice a daily - Stop Lantus. Started on Insulin Degludec 20units every night for diabetes, continue Trulicity injections - Return to ED if symptoms worsen Prescriptions/Referrals Prescriptions/Med Rec: New bumetanide 1 mg tablet 1 mg PO QDAY 30 Days Qty: 30 0RF carvedilol 6.25 mg tablet 6.25 mg PO BID 30 Days Qty: 60 0RF Rx Instructions: must administer with a meal/food insulin degludec 100 unit/mL (3 mL) insulin pen 20 unit subcut QPM 30 Days Qty: 6 0RF lisinopril 20 mg tablet 20 mg PO QDAY 30 Days Qty: 30 0RF (DME) pen needle, diabetic [Pen Needle] 29 gauge x 1/2 needle See Rx Instructions .Route Qty: 100 0RF Rx Instructions: As directed (DME) FreeStyle Ella 3 Sensor Device See Rx Instructions .Route Qty: 1 0RF Rx Instructions: As directed Continued albuterol sulfate 90 mcg/actuation HFA aerosol inhaler 2 puff INHALATION Q4HR PRN (Reason: Bronchospasm) Patient Comments: INHALE 2 PUFFS BY MOUTH EVERY 4 HOURS NEEDED fluticasone propionate [Flovent HFA] 110 mcg/actuation HFA aerosol inhaler 1 puff INHALATION BID Patient Comments: INHALE 1 PUFF BY MOUTH TWICE DAILY Trulicity 0.75 mg/0.5 mL pen injector 0.75 mg SUBCUT QWEEK Discontinued carvedilol 3.125 mg tablet 3.125 mg PO BID bumetanide 0.5 mg tablet 0.5 mg PO 1XD lisinopril 10 mg tablet 10 mg PO 1XD insulin glargine [Lantus Solostar U-100 Insulin] 100 unit/mL (3 mL) insulin pen 20 unit SUBCUT QPM Referrals: Yeyo Fabian MD [Primary Care Provider] - Patient/Caregiver Discharge Instructions Meds to Beds: Yes Discharge Activity: resume usual activities Education Materials: Heart Failure Signs of Flare-Up, Addiction: Getting Help, Addiction Recovery Counseling Print Language: Ghanaian Stand Alone Forms: [employer] Award Info., Patient Portal Info Letter Discharge Order Discharge Orders: Discharge (Routine); Ordered 02/18/24 Ordered By: Aamir Holland Quality Discharge Quality Measures VTE prophylaxis Attestestation Attestation I have discussed and was present for the essential components of the discharge history, physical examination, diagnosis, and discharge treatment plan with the resident. I agree with the patient's discharge care as documented by the resident and amended herein by me. Johnnie Spencer DO. The patient understood all discharge instructions, all questions were answered satisfactorily. The patient was instructed to return to the Emergency Department is symptoms worsened or persisted. Although this document has been carefully reviewed, there may still be some phonetic and other typographical errors. These errors are purely grammatical due to imperfections in the software program and should not be construed in any way to compromise the substance of the patient's medical care during this visit.
== END 2024-02-18 17:35 | disposition home or self-care (01) | DRG 194 ==
LOC: SERX 20:10 → SERHOLD 21:13 → S3NX 02-16 07:11 → SERHOLD 02-17 08:59
PROVIDERS: Emergency Medicine; Nurse Practitioner Primary Care; Admitting Provider Student in an Organized Health Care Education/Training Program; Emergency Provider Emergency Medicine; PCP Family Medicine; Visit Provider Student in an Organized Health Care Education/Training Program
DX: I11.0 Hypertensive heart disease with heart failure (principal); I50.9 Heart failure, unspecified; Z79.4 Long term (current) use of insulin; F17.210 Nicotine dependence, cigarettes, uncomplicated; F15.10 Other stimulant abuse, uncomplicated; J96.01 Acute respiratory failure with hypoxia; K74.60 Unspecified cirrhosis of liver; R16.1 Splenomegaly, not elsewhere classified; E66.9 Obesity, unspecified; Z68.41 Body mass index [BMI] 40.0-44.9, adult; F10.10 Alcohol abuse, uncomplicated; E11.65 Type 2 diabetes mellitus with hyperglycemia
CPT/HCPCS: 36415; 71046; 71275; 80053; 80061; 80307; 80320; 81001; 83615; 83735; 83880; 84100; 84439; 84443; 84484; 85025; 85379; 85610; 85730; 87077; 87086; 87186; 87400; 87811; 93005; 93225; 93306; 93970; 94640; 96365; 96366; 96372; 96374; 96375; 97162; 99285; A4649; A9270; J1643; J1815; J1940; J2270; J2919; J3475; J3490; Q9967; G0480; J1644

== ENCOUNTER 2024-05-27 08:18 | Emergency (ER) | payer MEDICAID, SELFPAY ==
[2024-05-27 08:34] VITALS: BP 149/78; PULSE 79; RESP 18; TEMP 36.4; O2SAT 95; BMI 37.3
--- NOTE | 2024-05-27 09:02 | XR_ITS ---
Examination: Foot, right, 3 views Technique: AP, oblique, lateral views foot, 3 views Date and time of exam: May 27, 2024 0922 hrs. Indications: Diabetic ulcer nonhealing on the right fifth digit beginning 4 days ago. Findings: Significant osteopenia. No fracture No jill cortical bone destruction Impression: No jill cortical bone destruction, consider MRI foot without contrast follow-up as clinically warranted
--- NOTE | 2024-05-27 09:02 | PD.EDRME ---
Rapid Medical Screening Exam RME Arrival date/time: 05/27/24 08:18 Chief Complaint: Wound/Laceration Time Seen by Provider: 05/27/24 08:23 Vital signs: Vital Signs Temperature 97.5 F 05/27/24 08:34 Pulse Rate 79 05/27/24 08:34 Respiratory Rate 18 05/27/24 08:34 Blood Pressure 149/78 H 05/27/24 08:34 Pulse Oximetry (%) 95 05/27/24 08:34 Oxygen Delivery Method Room Air 05/27/24 08:34 RME Narrative: 54-year-old female with history of diabetes currently living in [facility] [place] [facility] and sober for many months sent here by [facility] for evaluation of right fifth toe ulcer. States she is afraid that infection might be in the bone. No fever. Reports her A1c is now controlled with insulin at is 7% down from 14 in January when she was admitted for diabetic complications.
[2024-05-27 09:51] LABS: HCG Qualitative,Urine Negative
[2024-05-27 09:53] LABS: Amphetamine/Methamp Scrn,U Negative (Negative); Barbiturate Screen,Urine Negative (Negative); Benzodiazepines Screen,Urine Negative (Negative); Benzoylecgonine Screen, Ur Negative (Negative); Fentanyl Screen,Urine Negative (Negative); Opiate Screen,Urine Negative (Negative); THC Screen,Urine Negative (Negative)
[2024-05-27 10:29] LABS: Basophils % (Auto) 1 % (0-2.5); Eosinophils # (Auto) 0.1 Thou/mm3 (0.0-0.5); Eosinophils % (Auto) 1 % (0-10); Hematocrit 44.2 % (36.0-46.0); Hemoglobin 15.7 g/dL (12.0-16.0); Immature Granulocytes % (Auto) 0 % (0-0); Immature Granulocytes Auto 0.01 Thou/mm3 (0.00-0.00); Lymphocytes # (Auto) 1.4 Thou/mm3 (1.0-4.8); Lymphocytes % (Auto) 29 % (10-50); Mean Corpuscular HGB Conc 35.5 g/dl (31.0-37.0); Mean Corpuscular Hemoglobin 30.1 pg (25.0-35.0); Mean Corpuscular Volume 85 fL (80-100); Monocytes # (Auto) 0.4 Thou/mm3 (0.0-0.8); Monocytes % (Auto) 8 % (0-12); Neutrophils # (Auto) 2.9 Thou/mm3 (1.8-7.7); Neutrophils % (Auto) 60 % (37-80); Nucleated Red Blood Cell % 0 /100 WBC (0); Platelet Count 201 Thou/mm3 (140-440); RDW Standard Deviation 41.2 fL (36.4-46.3); Red Blood Count 5.21 Miln/mm3 (4.00-5.20); White Blood Count 4.7 Thou/mm3 (3.6-11.0)
[2024-05-27 10:31] LABS: Base Excess, Venous 5 (-3-3); O2 Saturation, Venous 59 % (96-97); PCO2, Venous 34 mmHg (36-56); PO2, Venous 22 mmHg (15-58); pH, Venous 7.51 (7.33-7.66)
[2024-05-27 10:32] LABS: Lactate (Lactic Acid) 1.2 mMol/L (0.4-2.0)
[2024-05-27 10:36] LABS: Beta Hydroxybutyrate 0.2 mmol/L (<0.6)
[2024-05-27 10:50] LABS: Alanine Aminotransferase 79 U/L (10-49); Albumin, Serum 3.6 gm/dL (3.5-5.0); Albumin/Globulin Ratio 1.2 (1.2-2.2); Alkaline Phosphatase 82 U/L (46-116); Anion Gap 5 (7-16); Aspartate Amino Transferase 55 U/L (0-34); BUN/Creatinine Ratio 17 Ratio (12-20); Bilirubin,Total 0.8 mg/dL (0.3-1.2); Blood Urea Nitrogen 10 mg/dL (9-23); C-Reactive Protein < 0.5 mg/dL (0.0-0.9); Calcium 8.5 mg/dL (8.3-10.6); Calcium (Corrected) 8.8 mg/dL (8.5-10.1); Carbon Dioxide 28.9 mMol/L (20.0-31.0); Chloride 104 mMol/L (98-107); Creatinine (Component) 0.6 mg/dL (0.6-1.3); Estimated Creatinine Clearance 125.1 mL/min (>60); Globulin 3.1 gm/dL (2.3-3.5); Glucose 270 mg/dL (74-106); Osmolality,Calculated 284 (275-295); Sodium 138 mMol/L (136-145); Total Protein 6.7 gm/dL (5.7-8.2); eGFR > 60 See Note
[2024-05-27 10:51] LABS: Sed Rate (ESR) 6 mm/hr (0-30)
[2024-05-27 11:38] VITALS: BP 150/85; PULSE 82; RESP 18; O2SAT 98
--- NOTE | 2024-05-27 11:38 | PC.NURSE ---
PT HERE WITH C/O WOUND TO RIGHT 5TH TOE X 2 DAYS. PT WITH OPEN WOUND TO INNER ASPECT OF TOE, NO DRAINAGE. REDNESS NOTED TO RIGHT 2ND TOE AND THE 5TH TOE.
[2024-05-27 12:31] VITALS: BP 148/89; PULSE 71; RESP 16; TEMP 36.7; O2SAT 95
--- NOTE | 2024-05-27 12:36 | EDNOTE_ITS ---
ED General RME/HPI General Chief complaint: Wound/Laceration Stated complaint: RIGHT DIABETIC PINKY TOE WOUND; SEEN [facility] Time Seen by Provider: 05/27/24 08:23 Source: patient Arrival date/time: 05/27/24 08:18 54-year-old diabetic female presents with right small toe pain and ulceration. She is concerned about infection. She is a brand-new patient at [facility]. She went to their clinic yesterday and was advised to come to the ER for evaluation and treatment. She is currently in a homeless [facility] and has been clean and sober since January. In January her hemoglobin A1c was 14 and is now currently around 7, per patient. Mode of arrival: ambulatory Limitations: no limitations RME / HPI RME / HPI narrative: 54-year-old female with history of diabetes currently living in a [facility] clean and sober for many months sent here by [facility] for evaluation of right fifth toe ulcer. States she is afraid that infection might be in the bone. No fever. Reports her A1c is now controlled with insulin at is 7% down from 14 in January when she was admitted for diabetic complications. Related Data Home Medications ?Medication ?Instructions ?Recorded ?Confirmed albuterol sulfate 90 mcg/actuation 2 puff inhalation Q 4HR PRN 06/02/22 02/15/24 aerosol inhaler Bronchospasm fluticasone propionate 110 1 puff inhalation BID 06/0202/15/24 mcg/actuation HFA aerosol inhaler (Flovent HFA) dulaglutide 0.75 mg/0.5 mL 0.75 mg subcut QWEEK 02/15/24 [facility] Previous Rx's ?Medication ?Instructions ?Recorded blood-glucose sensor (FreeStyle #1 ea 02/18/24 Ella 3 Sensor device) pen needle, diabetic 29 gauge x #100 ea 02/18/24 1/2 (Pen Needle) Allergies Allergy/AdvReac Type Severity Reaction Status Date / Time No Known Allergies Allergy Verified 05/27/24 08:22 Review of Systems Review of Systems Systems Reviewed: All systems reviewed, normal except as documented Constitutional Constitutional: Denies chills and Denies fever(s) Cardiovascular Cardiovascular: Denies dyspnea and Reports leg ulcers Respiratory Respiratory: Denies cough and Denies dyspnea Gastrointestinal Gastrointestinal: Denies change in stool character, Denies nausea and Denies vomiting Musculoskeletal Musculoskeletal: Denies back pain, Reports numbness and Reports tingling Integumentary/Breasts Skin/Breast: Reports skin ulcer (Right fifth toe) Neurologic Neurologic: Reports numbness, Reports paresthesias and Reports tingling Past Medical History Past Medical History NEUROLOGIC: Positive Neurological Disorders and Peripheral Neuropathy; Negative Cerebrovascular Accident or Seizures CARDIAC: Positive Congestive Heart Failure and Hypertension; Negative Cardiac Disorders, Myocardial Infarction or Hypercholesterolemia RESPIRATORY: Positive Asthma; Negative Chronic Obstructive Pulmonary Disease (COPD) GASTROINTESTINAL: Positive Gastrointestinal Disorders (INTERNAL ABD ABCESS HX), Cirrhosis, Gall Bladder Disease and Hemorrhoids; Negative Gastrointestinal Bleed or Hiatal Hernia GENITOURINARY: Negative Genitourinary Disorders or Renal Disease MUSCULOSKELETAL: Positive Musculoskeletal Disorders; Negative Osteoporosis or Fractures ENDOCRINE: Positive Endocrine Disorders and Diabetes Mellitus Type 2; Negative Diabetes Mellitus Type 1 or Hypothyroidism HEMATOLOGIC: Negative Blood Disorders or Sickle Cell Disease PSYCHO/SOCIAL: Positive Recreational Drug Use, Bipolar Disorder, Depression and Anxiety OTHER HISTORY: Positive Anesthesia Reactions; Negative Shingles, Falls, Blood Transfusions, Blood Transfusion Reaction, MRSA or Clostridium Difficile Family History FAMILY HISTORY: Negative Family Cardiac Disorders or Family Anesthesia Reaction Social History SMOKING STATUS: Light (< 1 pack/day) SUBSTANCE USE: methamphetamine ED Exam Narrative Physical exam: GENERAL APPEARANCE: alert and oriented x 4, well-developed, well-nourished, no acute distress VITALS: All vitals were reviewed and the pulse ox is 95% on roome air. HEENT: Normocephalic, atraumatic; pupils equal, round, reactive to light; EOMI; mucous membranes pink, moist; oropharynx clear NECK: Supple LUNGS: CTABL; no wheezes, no rales, no rhonchi HEART: Regular rate, regular rhythm; normal S1, S2; no murmurs ABDOMEN: non distended; normal BS; soft, no tenderness, no guarding, no rebound; no masses, no organomegaly, no hernia BACK: no CVA tenderness EXTREMITIES: atraumatic; no edema NEUROLOGIC: awake; alert and oriented x4; cranial nerves II-XII grossly intact; no focal sensory or motor deficits PSYCHIATRIC: appropriate mood and affect SKIN: right 5th toe with erythema and ulceration General Limitations: Present no limitations Course Quality Measures none Orders Category Date Time Status Wound Care NOW Care 05/27/24 12:55 Completed XR foot comp RT min 3V Stat Exams 04/05/25 09:02 Completed CBC Stat Lab 05/27/24 10:23 Completed CMP [Comprehensive Metabolic Panel] Stat Lab 05/27/24 10:23 Completed CRP [C-Reactive Protein] Stat Lab 05/27/24 10:23 Completed Drug Screen,Urine Stat Lab 05/27/24 09:28 Completed HCG Qualitative,Urine Stat Lab 05/27/24 09:28 Completed Ketone [Beta Hydroxybutyrate] Stat Lab 05/27/24 10:23 Completed Lactic Acid [Lactate (Lactic Acid)] Stat Lab 05/27/24 10:23 Completed Sed Rate (ESR) Stat Lab 05/27/24 10:23 Completed VBG [Venous Blood Gas] Stat Lab 05/27/24 10:23 Completed Vital Signs Vital signs: Vital Signs Temperature 97.5 F 05/27/24 08:34 Pulse Rate 79 05/27/24 08:34 Respiratory Rate 18 05/27/24 08:34 Blood Pressure 149/78 H 05/27/24 08:34 Pulse Oximetry (%) 95 05/27/24 08:34 Oxygen Delivery Method Room Air 05/27/24 08:34 Discharge Plan Plan Patient Disposition: HOME (Self Care) Discharge Disposition comment: Stable Health Concerns: Diabetes Prescriptions/Referrals Prescriptions/Med Rec: No Action albuterol sulfate 90 mcg/actuation HFA aerosol inhaler 2 puff INHALATION Q4HR PRN (Reason: Bronchospasm) Patient Comments: INHALE 2 PUFFS BY MOUTH EVERY 4 HOURS NEEDED fluticasone propionate [Flovent HFA] 110 mcg/actuation HFA aerosol inhaler 1 puff INHALATION BID Patient Comments: INHALE 1 PUFF BY MOUTH TWICE DAILY Trulicity 0.75 mg/0.5 mL pen injector 0.75 mg SUBCUT QWEEK (DME) pen needle, diabetic [Pen Needle] 29 gauge x 1/2 needle See Rx Instructions .Route Qty: 100 0RF Rx Instructions: As directed (DME) FreeStyle Ella 3 Sensor Device See Rx Instructions .Route Qty: 1 0RF Rx Instructions: As directed Referrals: Mayco Hernandez PA-C [Primary Care Provider] - In 1 week Problem List Clinical Impression: Diabetic foot ulcer associated with diabetes mellitus due to underlying condition Patient/Caregiver Discharge Instructions Education Materials: Diabetes: Keeping Feet Healthy, Diabetes: Inspecting Your Feet, ED Pressure Injury, Simple, ED Wound Care Additional Instructions: Follow-up with your primary care physician for referral to wound care, for care of your right fifth toe diabetic ulcer, and to a bus driver supervisor for ongoing diabetic foot care. Watch the color of the skin, if the skin starts changing color, r eturn to the ED immediately. Follow-up with your primary care physician in 24 to 48 hours. Return to the ED for any new or worsening symptoms. Print Language: Bangladeshi Stand Alone Forms: Yuly Award Info., Patient Portal Info Letter PA/MANAGER BANK Supervising Physician PA/MANAGER BANK Supervising Physician: Dr. Bell
[2024-05-27 13:39] VITALS: BP 159/75; PULSE 68; RESP 15; TEMP 36.6; O2SAT 95
--- NOTE | 2024-05-27 13:39 | PC.NURSE ---
LIVING SUPERVISOR MADE AWARE PT NEEDING TRANSPORTATION BACK TO [facility]OM[facility]ESS [facility], AD[address]ESS [address]
== END 2024-05-27 13:45 | disposition home or self-care (01) ==
PROVIDERS: Physician Assistant; Emergency Provider Emergency Medicine; PCP Physician Assistant Medical
DX: E11.621 Type 2 diabetes mellitus with foot ulcer (principal); L97.519 Non-pressure chronic ulcer of other part of right foot with unspecified severity; Z79.4 Long term (current) use of insulin; Z79.85 Long-term (current) use of injectable non-insulin antidiabetic drugs; Z59.01 Sheltered homelessness
CPT/HCPCS: 36415; 73630; 80053; 80307; 81025; 82010; 82803; 83605; 85025; 85652; 86140; 99283